=== PATIENT | male | born 1960 | race Caucasian/White ===

== ENCOUNTER 2024-04-30 18:17 | Inpatient (IN) | payer MEDICAID, SELFPAY ==
[2024-04-30 18:30] VITALS: BP 165/87; PULSE 108; RESP 24; TEMP 36.4; O2SAT 98
--- NOTE | 2024-04-30 18:37 | XR_ITS ---
Examination: CT abdomen with intravenous contrast CT pelvis with intravenous contrast 2-D coronal reconstructions 2-D sagittal reconstructions Date and time of exam:25 2152 hrs. Indications: Nausea vomiting bodyaches beginning 2 days ago. CTDI: vol (mGy) 10.9 DLP: (mGycm) 689 Technique: Multiple axial sections of the abdomen and pelvis have been obtained. 64 slice high-resolution scanner used. 3 mm axial sections have been obtained, post intravenous injection 60 cc [id number] 2-D sagittal, coronal reconstructions obtained. Low dose protocols were performed. One or more of the following dose reduction techniques were used; automated exposure control, adjustment of the mA and/or KV according to patient size, use of iterative reconstruction technique. Findings: No liver or splenic lesions Distended gallbladder No pancreatic or adrenal mass Moderate bilateral renal parenchymal scar formation, perinephric stranding Aorta normal size Normal appendix No bowel obstruction No diverticulitis No bladder mass or bladder calculi Mild prostatomegaly Moderate osteopenia, grade 1 anterolisthesis L4 on L5 Impression: Distended gallbladder, please see the gallbladder sonogram report today Moderate bilateral renal parenchymal scar formation with perinephric stranding, consider urinary tract infection
--- NOTE | 2024-04-30 18:39 | PD.EDNV ---
Nausea/Vomit./Diarrhea-RME/HPI General Chief complaint: Nausea/Vomiting/Diarrhea Stated complaint: N/V/D, BODY ACHES, SHAKY X 2 DAYS; CAN'T EAT Time Seen by Provider: 04/30/24 18:37 Arrival date/time: 04/30/24 18:17 63M with history of HTN and DM and occasional marijuana use presents ot ED with several days of N/V, body aches, non-bloody diarrhea, and ab pain/cramping. Limitations: no limitations Related Data Home Medications ?Medication ?Instructions ?Recorded ?Confirmed hydrocodone 5 mg-acetaminophen 325 1 tab PO QID PRN Pain 12/03/17 05/01/24 mg tablet (Welda) metformin 1,000 mg tablet 1,000 mg PO BID 12/03/17 05/01/24 gabapentin 600 mg tablet 600 mg PO HS 05/01/24 05/01/24 liraglutide 0.6 mg/0.1 mL (18 mg/3 1.5 mg subcut QDAY 05/01/24 05/01/24 mL) subcutaneous pen injector (Tufin 3-Skyler) Previous Rx's ?Medication ?Instructions ?Recorded bacitracin 500 unit/gram topical 1 applicatio topical QID #30 grams 12/03/17 ointment sulfamethoxazole 800 1 tab PO BID #20 tabs 12/03/17 mg-trimethoprim 160 mg tablet (Bactrim DS) amlodipine 10 mg tablet 10 mg PO QDAY #30 tabs 05/03/18 Allergies Allergy/AdvReac Type Severity Reaction Status Date / Time walnut Allergy Unknown SOB Verified 04/30/24 18:20 Review of Systems Review of Systems Systems Reviewed: All systems reviewed, normal except as documented Constitutional Constitutional: Reports system reviewed and no additional complaints, except as documented, Denies fever(s) and Denies headache(s) ENT Ears, Nose, Mouth, and Throat: Denies disequilibrium and Denies headache(s) Cardiovascular Cardiovascular: Reports system reviewed and no additional complaints, except as documented, Denies chest pain and Denies dyspnea Respiratory Respiratory: Reports system reviewed and no additional complaints, except as documented, Denies cough and Denies dyspnea Gastrointestinal Gastrointestinal: Reports system reviewed and no additional complaints, except as documented, Reports as per HPI, Reports abdominal pain, Reports diarrhea, Reports nausea and Reports vomiting Neurologic Neurologic: Reports system reviewed and no additional complaints, except as documented, Denies confusion, Denies disequilibrium and Denies headache(s) Psychiatric Psychiatric: Denies confusion Past Medical History Past Medical History CARDIAC: Positive Hypertension; Negative Congestive Heart Failure RESPIRATORY: Negative Chronic Obstructive Pulmonary Disease (COPD) GENITOURINARY: Negative Renal Disease ENDOCRINE: Positive Diabetes Mellitus Type 2; Negative Diabetes Mellitus Type 1 Social History SMOKING STATUS: Never smoker SUBSTANCE USE: does not use ED Exam General Limitations: Present no limitations General appearance: Present alert and in no apparent distress Head Head exam: Present atraumatic Eye Eye exam: Present normal appearance, PERRL and EOMI ENT ENT exam: Present normal exam, normal oropharynx and mucous membranes moist Neck Neck exam: Present normal inspection, full ROM and trachea midline Chest Chest inspection: Present normal inspection and symmetric chest wall rise Respiratory Respiratory exam: Present normal lung sounds bilaterally Cardiovascular Cardiovascular exam: Present regular rate, normal rhythm and normal heart sounds Abdominal Exam Abdominal exam: Present soft, tenderness and normal bowel sounds Abdominal tenderness: Present diffuse and mild Extremities Exam Extremities exam: Present normal inspection and full ROM Back Exam Back exam: Present normal inspection and full ROM Neurological Exam Neurological exam: Present alert, oriented X3 and CN II-XII intact Psychiatric Psychiatric exam: Present normal affect and normal mood Skin Skin exam: Present warm, dry, intact and normal color Course Quality Measures none Orders Category Date Time Status Bedside Blood Glucose ACHS Care 05/01/24 09:00 Active Bedside COVID-19 Antigen Test NOW Care 05/01/24 13:[address] Screening NOW Care 04/30/24 18:38 Active Consent [Obtain Written Consent For:] .NOW Care 05/01/24 13:40 Completed Insert IV NOW Care 04/30/24 18:37 Active MRI Screening NOW Care 04/30/24 22:[address] abdomen pelvis w con Stat Exams 04/30/24 18:37 Completed MR MRCP Stat Exams 05/01/24 Completed US gall bladder Stat Exams 04/30/24 20:23 Completed Alcohol, Blood Medical Stat Lab 04/30/24 19:04 Completed Beta Hydroxybutyrate Stat Lab 04/30/24 19:04 Completed Beta Hydroxybutyrate Stat Lab 05/01/24 09:05 Completed Blood Culture (Lab) Stat Lab 04/30/24 19:57 Received CBC Stat Lab 04/30/24 19:04 Completed CBC Stat Lab 05/01/24 07:54 Completed CMP [Comprehensive Metabolic Panel] Stat Lab 04/30/24 19:04 Completed CMP [Comprehensive Metabolic Panel] Stat Lab 05/01/24 07:54 Completed Drug Screen,Urine Stat Lab 04/30/24 18:37 Completed Lactate (Lactic Acid) Stat Lab 04/30/24 19:04 Completed Lactic Acid [Lactate (Lactic Acid)] Stat Lab 05/01/24 07:54 Completed Lactic Acid, 3 HR Stat Lab 04/30/24 22:24 Completed Lipase Stat Lab 04/30/24 19:04 Completed Magnesium Stat Lab 04/30/24 19:04 Completed Phosphorous Stat Lab 04/30/24 19:04 Completed Procalcitonin Stat Lab 04/30/24 19:04 Completed Renal Function Panel Stat Lab 05/01/24 03:05 Completed Urinalysis, C/S if Indicated Stat Lab 04/30/24 19:47 Completed VBG [Venous Blood Gas] Stat Lab 04/30/24 19:04 Completed Acetaminophen Tab [Tylenol Tab] Med 05/01/24 09:20 Discontinued 650 mg PO X1 ONE DiphenhydrAMINE INJ [Benadryl Inj] Med 04/30/24 22:15 Discontinued 12.5 mg IVP X1 ONE Insulin Regular Med 04/30/24 23:39 Discontinued 10 unit IV X1 ONE Metoclopramide Inj [Reglan Inj] Med 04/30/24 22:15 Discontinued 10 mg IVP X1 ONE Metoclopramide Inj [Reglan Inj] Med 05/01/24 06:57 Discontinued 10 mg IVP X1 ONE Morphine Inj Med 04/30/24 21:10 Discontinued 5 mg IVP X1 ONE Ondansetron Inj [Zofran Inj] Med 04/30/24 18:37 Discontinued 4 mg IV X1 ONE Piper/Tazo 3.375 gm Premix [Zosyn] Med 04/30/24 21:30 Discontinued 3.375 gm in 50 ml IV X1 Piper/Tazo 3.375 gm Premix [Zosyn] Med 05/01/24 13:41 Discontinued 3.375 gm in 50 ml IV X1 Ringers Lactated 1000 ml [Lactated Ringers] 1,000 ml Med 05/01/24 03:57 Discontinued IV 250 mls/hr Ringers Lactated 1000 ml [Lactated Ringers] 1,000 ml Med 04/30/24 23:25 Discontinued IV 500 mls/hr Ringers Lactated 1000 ml [Lactated Ringers] 1,000 ml Med 04/30/24 18:37 Discontinued IV 999 mls/hr Sodium Chloride 0.9% 1000 ml [Ns] 1,000 ml Med 04/30/24 22:19 Discontinued IV 500 mls/hr hydrALAZINE INJ [Apresoline Inj] Med 05/01/24 00:01 Discontinued 20 mg IV X1 ONE Vital Signs Vital signs: Vital Signs Temperature 97.6 F 04/30/24 18:30 Pulse Rate 108 H 04/30/24 18:30 Respiratory Rate 24 H 04/30/24 18:30 Blood Pressure 165/87 H 04/30/24 18:30 Pulse Oximetry (%) 98 04/30/24 18:30 O2 at 98% on RA and WNLs Nausea/Vomiting/Diarrhea MDM Narrative MDM Narrative:: 63M with history of HTN and DM and occasional marijuana use presents ot ED with several days of N/V, body aches, non-bloody diarrhea, and ab pain/cramping. Physical exam reveals mild generalized ab tenderness. Patient is afebrile, calm, and alert. CT reveals distended gallbladder. US shows cholelithiasis, but no cholecystitis. CBD normal. Lactate 4.9. Procal 3.0. Sepsis alert was called. IVF, ABX, were given. CMP elevated bili and LFTs. Repeat lactate 3.0. Upon reassessment, patient feeling better after meds. Glucose, beta hydroxy, and anion gap elevated. But blood pH normal. Possible early DKA vs DKA with compensatory/mixed alkalosis from N/V likely from biliary disease. Patient will need MRCP in AM. Care signed out to colleague TON Jacinto. Dispo including transfer vs admission/surgical consultation. Patient ended up being admitted for surgery for cholecystitis confirmed with MRCP. Patient data External records reviewed:: [facility] previous records Clinical information provided by:: patient Social determinants that could affect healthcare access:: substance use Patient has the following chronic illnesses:: DM and marijuana use How is presenting disease/condition affected by chronic disease/condition?: exacerbated by Evaluation data The following diagnostics were reviewed and interpreted by me:: lab results and radiology exam(s) Lab and/or radiology exams considered but not ordered:: ordered Interpretation Summary: above Medications / Prescriptions Medications / Prescriptions considered but not ordered:: ordered Medication administrations:: Medication Administration History Acetaminophen (Acetaminophen 325 Mg Tablet) 650 mg PO Q6H PRN PRN Reason: Fever >101.5 Stop: 05/31/24 14:05 Acetaminophen (Acetaminophen 325 Mg Tablet) 650 mg PO Q6H PRN PRN Reason: PAIN SCALE 1-3 (mild Stop: 05/31/24 14:05 Last Admin: 05/01/24 16:37 Dose: 650 mg Documented By: JARON Dextrose (Dextrose 50%-Water Inj 50 Ml Syringe) 25 ml IV Q15MIN PRN PRN Reason: BG 50-70 responsive npo pt Stop: 05/31/24 14:11 Dextrose (Dextrose 50%-Water Inj 50 Ml Syringe) 50 ml IV Q15MIN PRN PRN Reason: BG <50 OR BG <70 & pt unresponsive Stop: 05/31/24 14:11 Docusate Sodium (Docusate Sod 100 Mg Capsule) 100 mg PO QDAY [facility]; Protocol Stop: 06/01/24 08:59 Glucagon (Glucagon Inj 1 Mg Vial) 1 mg IM Q15MIN PRN PRN Reason: BG <70, and no IV access Piperacillin/Tazobactam/Dextrose (Zosyn) 3.375 gm in 50 mls @ 12.5 mls/hr IV Q8HR [facility] Stop: 05/08/24 21:59 Lactated Ringer's (Lactated Ringers) 1,000 mls @ 150 mls/hr IV .Q6H40M [facility] Stop: 05/31/24 14:35 Last Admin: 05/01/24 14:47 Dose: 150 mls/hr Documented By: FABIAN Insulin Human Lispro (Insulin Lispro (Admelog) 1 Unit/0.01 Ml Unit) 0 unit SC AC [facility]; Protocol Stop: 05/31/24 16:59 Last Admin: 05/01/24 16:51 Dose: 3 unit Documented By: JARON Co-signed By: DEANNA Ondansetron HCl (Ondansetron Inj 2 Mg/Ml Inj 2 Ml) 4 mg IV Q6H PRN; Protocol PRN Reason: NAUSEA OR VOMITING Stop: 05/31/24 14:05 Pantoprazole Sodium (Pantoprazole Inj 40 Mg Vial) 40 mg IVP QDAY [facility] Stop: 05/31/24 14:14 Last Admin: 05/01/24 14:47 Dose: 40 mg Documented By: FABIAN Sennosides (Senna Tablet) 1 tab PO QDAY [facility]; Protocol Stop: 06/01/24 08:59 Discontinued Medications Acetaminophen (Acetaminophen 325 Mg Tablet) 650 mg PO X1 ONE Stop: 05/01/24 09:21 Last Admin: 05/01/24 10:20 Dose: 650 mg Documented By: LORI Diphenhydramine HCl (Diphenhydramine Inj 50 Mg/Ml Vial) 12.5 mg IVP X1 ONE Stop: 04/30/24 22:16 Last Admin: 04/30/24 23:37 Dose: 12.5 mg Documented By: MIGUEL ANGEL Hydralazine HCl (Hydralazine Inj 20 Mg/Ml Vial) 20 mg IV X1 ONE Stop: 05/01/24 00:02 Last Admin: 05/01/24 00:59 Dose: 20 mg Documented By: MIGUEL ANGEL Lactated Ringer's (Lactated Ringers) 1,000 mls @ 999 mls/hr IV .Q1H1M ONE Stop: 04/30/24 19:37 Last Infusion: 04/30/24 22:42 Dose: Infused Documented By: Admin: 04/30/24 20:19 Dose: 999 mls/hr Documented By: JAYDEN Piperacillin/Tazobactam/Dextrose (Zosyn) 3.375 gm in 50 mls @ 100 mls/hr IV X1 ONE Stop: 04/30/24 21:59 Last Infusion: 04/30/24 22:41 Dose: Infused Documented By: Admin: 04/30/24 21:43 Dose: 100 mls/hr Documented By: JAYDEN Sodium Chloride (Ns) 1,000 mls @ 500 mls/hr IV .Q2H ONE Stop: 05/01/24 00:18 Last Admin: 04/30/24 23:38 Dose: Not Given Documented By: MIGUEL ANGEL Non-Admin Reason: Cancelled by Provider Lactated Ringer's (Lactated Ringers) 1,000 mls @ 500 mls/hr IV .Q2H ONE Stop: 05/01/24 01:24 Last Infusion: 05/01/24 02:33 Dose: Infused Documented By: Admin: 04/30/24 23:48 Dose: 500 mls/hr Documented By: MIGUEL ANGEL Lactated Ringer's (Lactated Ringers) 1,000 mls @ 250 mls/hr IV .Q4H ONE Stop: 05/01/24 07:56 Last Infusion: 05/01/24 09:04 Dose: Infused Documented By: Admin: 05/01/24 04:49 Dose: 250 mls/hr Documented By: TRAVIS Piperacillin/Tazobactam/Dextrose (Zosyn) 3.375 gm in 50 mls @ 100 mls/hr IV X1 ONE Stop: 05/01/24 14:10 Last Infusion: 05/01/24 14:39 Dose: Infused Documented By: Admin: 05/01/24 14:02 Dose: 100 mls/hr Documented By: RODRIGUE Lactated Ringer's (Lactated Ringers) 1,000 mls @ 75 mls/hr IV .[id number] [facility] Stop: 05/31/24 14:14 Insulin Human Regular (Insulin Hum Regular 1 Unit/0.01 Ml (Per Unit)) 10 unit IV X1 ONE Stop: 04/30/24 23:40 Last Admin: 05/01/24 00:11 Dose: 10 unit Documented By: MIGUEL ANGEL Co-signed By: JAYDEN Comments: Metoclopramide HCl (Metoclopramide Inj 5 Mg/Ml Vial 2 Ml) 10 mg IVP X1 ONE; Protocol Stop: 04/30/24 22:16 Last Admin: 04/30/24 23:36 Dose: 10 mg Documented By: MIGUEL ANGEL Metoclopramide HCl (Metoclopramide Inj 5 Mg/Ml Vial 2 Ml) 10 mg IVP X1 ONE; Protocol Stop: 05/01/24 06:58 Last Admin: 05/01/24 07:38 Dose: 10 mg Documented By: LORI Morphine Sulfate (Morphine Sulf Inj 10 Mg/Ml Vial) 5 mg IVP X1 ONE Stop: 04/30/24 21:11 Last Admin: 04/30/24 21:43 Dose: 5 mg Documented By: JAYDEN Ondansetron HCl (Ondansetron Inj 2 Mg/Ml Inj 2 Ml) 4 mg IV X1 ONE; Protocol Stop: 04/30/24 18:38 Last Admin: 04/30/24 20:18 Dose: 4 mg Documented By: JAYDEN above Consultations Consultation(s) initiated? (list below): No Diagnosis Nausea Differential Diagnosis: traveler's diarrhea, food poisoning, gastroenteritis, clostridium difficile infection, drug-induced nausea and vomiting, dehydration and other (DKA, SBO, biliary disease) Most likely diagnosis given after review of the tests above:: cholecystitis Admission Indicated Admission indicated?: indicated Admission Request Was there a request for admission?: Yes Admission Attestation Admission request attestation: Discussed case with [] from Hospitalist service regarding admission. Discussed patients ED course, exam findings, labs, and radiology results. The Hospitalist [agrees,declines] to accept the patient for admission. Disposition Plan Disposition Plan: Admit Discharge Plan Plan Patient Disposition: Admit Acute Care w/in Hospital Problem List Clinical Impression: Acute cholecystitis
[2024-04-30 19:35] LABS: Basophils % (Auto) 0 % (0-2.5); Eosinophils % (Auto) 0 % (0-10); Hematocrit 45.8 % (41.0-53.0); Hemoglobin 15.9 g/dL (13.5-16.0); Immature Granulocytes % (Auto) 1 % (0-0); Immature Granulocytes Auto 0.15 Thou/mm3 (0.00-0.00); Lymphocytes # (Auto) 0.9 Thou/mm3 (1.0-4.8); Lymphocytes % (Auto) 5 % (10-50); Mean Corpuscular HGB Conc 34.7 g/dl (31.0-37.0); Mean Corpuscular Hemoglobin 29.3 pg (25.0-35.0); Mean Corpuscular Volume 84 fL (80-100); Monocytes # (Auto) 1.2 Thou/mm3 (0.0-0.8); Monocytes % (Auto) 7 % (0-12); Neutrophils # (Auto) 16.6 Thou/mm3 (1.8-7.7); Neutrophils % (Auto) 88 % (37-80); Nucleated Red Blood Cell % 0 /100 WBC (0); Platelet Count 273 Thou/mm3 (140-440); RDW Standard Deviation 40.5 fL (35.1-43.9); Red Blood Count 5.43 Miln/mm3 (4.50-5.90); White Blood Count 18.9 Thou/mm3 (3.8-10.6)
[2024-04-30 19:36] LABS: Lactate (Lactic Acid) 4.9 mMol/L (0.4-2.0)
[2024-04-30 19:45] LABS: Beta Hydroxybutyrate 5.2 mmol/L (<0.6)
[2024-04-30 19:59] VITALS: BP 176/92; PULSE 100; RESP 22; TEMP 36.6; O2SAT 99
[2024-04-30 20:01] LABS: Alanine Aminotransferase 231 U/L (10-49); Albumin, Serum 4.5 gm/dL (3.4-4.8); Albumin/Globulin Ratio 1.3 (1.2-2.2); Alkaline Phosphatase 268 U/L (46-116); Anion Gap 24 (7-16); Aspartate Amino Transferase 207 U/L (0-34); BUN/Creatinine Ratio 17 Ratio (12-20); Bilirubin,Total 6.5 mg/dL (0.3-1.2); Blood Urea Nitrogen 20 mg/dL (9-23); Calcium 9.8 mg/dL (8.3-10.6); Calcium (Corrected) 9.8 mg/dL (8.5-10.1); Carbon Dioxide 17.4 mMol/L (20.0-31.0); Chloride 92 mMol/L (98-107); Creatinine (Component) 1.2 mg/dL (0.6-1.3); Globulin 3.4 gm/dL (2.3-3.5); Glucose 359 mg/dL (74-106); Lipase 28 U/L (12-53); Osmolality,Calculated 282 (275-295); Sodium 133 mMol/L (136-145); Total Protein 7.9 gm/dL (5.7-8.2); eGFR > 60 See Note
[2024-04-30] MEDS: ONDANSETRON INJ 2 MG/ML INJ 2 ML 4 MG IV (20:18)
[2024-04-30] MEDS: RINGERS LACTATED 1000 ML 1,000 ML 999 ML IV (20:19)
--- NOTE | 2024-04-30 20:23 | XR_ITS ---
Examination: Abdomen sonogram, Limited Date and time of exam: April 30, 2024 2032 hrs. Indications: Abdominal pain and vomiting beginning 2 days ago Technique: Real-time aguilar scale transabdominal sonographic images of the upper abdomen obtained. Findings: Contracted gallbladder with gallstones Gallbladder wall 0.3 cm Common bile duct 0.4 CM Pancreatic head 3.2 cm Liver 14 cm fatty infiltration Normal hepatopedal portal venous flow Patent IVC Impression: Cholelithiasis, negative for cholecystitis
[2024-04-30 20:46] LABS: Reflex Lactate? Y
[2024-04-30 20:55] LABS: Base Excess, Venous -2 (-3-3); O2 Saturation, Venous 79 % (96-97); PCO2, Venous 23 mmHg (36-56); PO2, Venous 35 mmHg (15-58); pH, Venous 7.53 (7.33-7.66)
[2024-04-30 21:03] LABS: Bacteria,Urine Rare; Bilirubin,Urine 1+ (Negative); Blood,Urine 2+ (Negative); Clarity,Urine Clear (Clear/Hazy); Collection Type, Urine Clean Catch; Color,Urine Yellow (Lt Yel-Yel); Culture Indicated,Urine Not Indicated; Glucose, Urine 4+ (Negative); Ketones,Urine 3+ (Negative); Leukocyte Esterase,Urine Negative (Negative); Nitrite,Urine Negative (Negative); Protein,Urine 1+ (Neg - Trace); RBC,Urine 6 /hpf (0-3); Specific Gravity,Urine 1.037 (1.001-1.035); Squamous Epithelial Cell,Urine 0 /hpf (0-5); Urobilinogen,Urine Negative mg/dL (0.0-1.0); WBC,Urine 1 /hpf (0-5)
[2024-04-30 21:04] LABS: Alcohol, Blood Medical < 3.0 mg/dL (0-10.0); Magnesium 1.9 mg/dL (1.6-2.6); Phosphorous 2.1 mg/dL (2.4-5.1)
[2024-04-30 21:23] LABS: Amphetamine/Methamp Scrn,U Negative (Negative); Barbiturate Screen,Urine Negative (Negative); Benzodiazepines Screen,Urine Negative (Negative); Benzoylecgonine Screen, Ur Negative (Negative); Fentanyl Screen,Urine Negative (Negative); Opiate Screen,Urine Positive (Negative); THC Screen,Urine Positive (Negative)
[2024-04-30] MEDS: PIPER/TAZO 3.375 GM PREMIX 3.375 GM/50 ML BAG IV (21:43)
[2024-04-30] MEDS: MORPHINE SULF INJ 10 MG/ML VIAL 5 MG IVP (21:43)
--- NOTE | 2024-04-30 23:30 | PC.NURSE ---
CHARGE NURSE ESTELITA INFORMED THAT PT IS GETTING MORE AGITATED, CONTINUES GETTING OUT OF BED, PULLING ON ALL MONITORING DEVICES. PT REMOVED CONDOM CATHETER AND THREW IT ON THE FLOOR. AVASURE ORDER PLACED AT [phone] FAX OVER TO HOUSE SUP. STILL AWAITING AVASURE AT THIS TIME. CRISTÓBAL RAUSCH PLACED O 1:1 SITTER AT THIS TIME.
[2024-04-30] MEDS: METOCLOPRAMIDE INJ 5 MG/ML VIAL 2 ML 10 MG IVP (23:36)
[2024-04-30] MEDS: DiphenhydrAMINE INJ 50 MG/ML VIAL 12.5 MG IVP (23:37)
[2024-04-30 23:41] VITALS: BP 188/102; BP 197/111; PULSE 101; RESP 19; TEMP 36.7; O2SAT 97
[2024-04-30] MEDS: RINGERS LACTATED 1000 ML 1,000 ML 500 ML IV (23:48)
[2024-05-01] VITALS (9 sets, daily range): BP systolic 134–165; BP diastolic 69–99; PULSE 90–103; RESP 16–19; TEMP 36.3–37.4; O2SAT 94–98; BMI 30.9
--- NOTE | 2024-05-01 | XR_ITS ---
EXAMINATION: MR MRCP ORDERING PROVIDER: John Crabtree PA-C HISTORY: Abdominal pain, cramping, nausea/vomiting, bodyaches x2 days. Elevated biliary labs, sepsis, concern for common bile duct stone. TECHNIQUE: Multiplanar multisequence magnetic resonance images were obtained of the abdomen without contrast utilizing institutional magnetic resonance cholangiopancreatography protocol. This includes 2-D, 3-D, and maximum intensity projection reformats generated on a separate workstation and submitted for interpretation. COMPARISON: 04/30/2024, CT abdomen pelvis and right upper quadrant ultrasound. FINDINGS: Hydropic gallbladder measuring up to 13.2 cm in length. No wall thickening. Pericholecystic fluid is present. Mild graying of normal internal T2 signal in the gallbladder likely represents diffuse sludge without intraluminal filling defects. Cystic duct is not well evaluated. Common bile duct measures 6 mm. There is no intraluminal filling defect. There is no intrahepatic biliary dilation. Hepatic duct measures 3 mm. There is significant atrophy of the pancreas. There is a 1.5 cm widened T2 hyperintensity adjacent to the first portion of the duodenum and pancreatic head, with altered appearance is on different sequences, favored to be related to duodenal lumen. There is diffuse decreased T2 signal of the liver. There is a 7 mm peripheral T2 hyperintensity in inferior aspect of the spleen, which may represent a cyst. Adrenal glands unremarkable. Moderate bilateral perinephric fat stranding without pelvic caliectasis. Colonic diverticulosis without surrounding inflammatory changes. There are signal unremarkable. Vessels not abnormally dilated. 2 left renal arteries. IMPRESSION: 1. Acute cholecystitis with gallbladder sludge. 2. No choledocholithiasis identified. 3. Hepatic steatosis. 4. Moderate bilateral perinephric fat stranding, probably due to age and/or chronic renal dysfunction. However, recommend correlation with urinary labs to help exclude underlying urinary tract infection.
[2024-05-01] MEDS: INSULIN HUM REGULAR 1 UNIT/0.01 ML (PER UNIT) 10 UNIT IV (00:11)
[2024-05-01] MEDS: hydrALAZINE INJ 20 MG/ML VIAL IV (00:59)
[2024-05-01 03:40] LABS: Albumin, Serum 4.2 gm/dL (3.4-4.8); Anion Gap 18 (7-16); BUN/Creatinine Ratio 20 Ratio (12-20); Blood Urea Nitrogen 22 mg/dL (9-23); Calcium 9.3 mg/dL (8.3-10.6); Calcium (Corrected) 9.3 mg/dL (8.5-10.1); Carbon Dioxide 20.9 mMol/L (20.0-31.0); Chloride 96 mMol/L (98-107); Creatinine (Component) 1.1 mg/dL (0.6-1.3); Glucose 281 mg/dL (74-106); Osmolality,Calculated 283 (275-295); Phosphorous 2.8 mg/dL (2.4-5.1); Potassium 3.8 mMol/L (3.4-5.1); Sodium 135 mMol/L (136-145); eGFR > 60 See Note
[2024-05-01] MEDS: RINGERS LACTATED 1000 ML 1,000 ML 250 ML IV (04:49)
--- NOTE | 2024-05-01 06:58 | PC.NURSE ---
PROVIDER CHELA ZARCO PT IS VOMIITING AT BEDSIDE. NEW ORDERS RECEIVED.
[2024-05-01] MEDS: METOCLOPRAMIDE INJ 5 MG/ML VIAL 2 ML 10 MG IVP (07:38)
[2024-05-01 08:08] LABS: Lactate (Lactic Acid) 1.9 mMol/L (0.4-2.0)
[2024-05-01 08:29] LABS: Alanine Aminotransferase 178 U/L (10-49); Albumin, Serum 4.2 gm/dL (3.4-4.8); Albumin/Globulin Ratio 1.4 (1.2-2.2); Alkaline Phosphatase 254 U/L (46-116); Anion Gap 20 (7-16); Aspartate Amino Transferase 136 U/L (0-34); BUN/Creatinine Ratio 21 Ratio (12-20); Bilirubin,Total 4.4 mg/dL (0.3-1.2); Blood Urea Nitrogen 21 mg/dL (9-23); Calcium 9.3 mg/dL (8.3-10.6); Calcium (Corrected) 9.3 mg/dL (8.5-10.1); Carbon Dioxide 18.8 mMol/L (20.0-31.0); Chloride 95 mMol/L (98-107); Globulin 3.1 gm/dL (2.3-3.5); Glucose 262 mg/dL (74-106); Osmolality,Calculated 280 (275-295); Potassium 3.8 mMol/L (3.4-5.1); Sodium 134 mMol/L (136-145); Total Protein 7.3 gm/dL (5.7-8.2); eGFR > 60 See Note
[2024-05-01 08:31] LABS: Basophils % (Auto) 0 % (0-2.5); Eosinophils % (Auto) 0 % (0-10); Hematocrit 42.9 % (41.0-53.0); Hemoglobin 15.3 g/dL (13.5-16.0); Immature Granulocytes % (Auto) 1 % (0-0); Immature Granulocytes Auto 0.13 Thou/mm3 (0.00-0.00); Lymphocytes % (Auto) 5 % (10-50); Mean Corpuscular HGB Conc 35.7 g/dl (31.0-37.0); Mean Corpuscular Hemoglobin 29.7 pg (25.0-35.0); Mean Corpuscular Volume 83 fL (80-100); Monocytes # (Auto) 1.6 Thou/mm3 (0.0-0.8); Monocytes % (Auto) 7 % (0-12); Neutrophils # (Auto) 18.5 Thou/mm3 (1.8-7.7); Neutrophils % (Auto) 87 % (37-80); Nucleated Red Blood Cell % 0 /100 WBC (0); Platelet Count 283 Thou/mm3 (140-440); RDW Standard Deviation 41.2 fL (35.1-43.9); Red Blood Count 5.15 Miln/mm3 (4.50-5.90); White Blood Count 21.3 Thou/mm3 (3.8-10.6)
[2024-05-01 09:15] LABS: Beta Hydroxybutyrate 5.4 mmol/L (<0.6)
[2024-05-01] MEDS: ACETAMINOPHEN 325 MG TABLET 650 MG PO ×2 (10:20→16:37)
--- NOTE | 2024-05-01 11:36 | PC.NURSE ---
PATIENT REPORTS THAT PAIN IS TOLERABLE AT THIS TIME AND DOES NOT NEED PAIN MEDICATION AT THIS TIME.
--- NOTE | 2024-05-01 13:34 | EDNOTE_ITS ---
<Statement entered by Bailee Shaw MD - 05/12/24 08:21> As co-signing physician, I was present and available for consult prn. I concur with the plan and care as documented by the midlevel provider. ED General RME/HPI General Chief complaint: Nausea/Vomiting/Diarrhea Stated complaint: N/V/D, BODY ACHES, SHAKY X 2 DAYS; CAN'T EAT Time Seen by Provider: 04/30/24 18:37 Arrival date/time: 04/30/24 18:17 CC: Nausea vomiting HPI patient assumed care at 0 600 from [facility], for nausea vomiting at the time patient had DKA ruled out, the patient was sleeping soundly, and had no complaints. Patient was waiting for MRCP scheduled for this morning.. Limitations: no limitations Related Data Home Medications ?Medication ?Instructions ?Recorded ?Confirmed hydrocodone 5 mg-acetaminophen 325 1 tab PO QID PRN Pa in 12/03/17 05/01/24 mg tablet (Bison) metformin 1,000 mg tablet 1,000 mg PO BID 12/03/17 gabapentin 600 mg tablet 600 mg PO HS 05/01/24 liraglutide 0.6 mg/0.1 mL (18 mg/3 1.5 mg subcut QDAY 05/01/24 05/01/24 mL) subcutaneous pen injector (Victoza 3-Skyler) Previous Rx's ?Medication ?Instructions ?Recorded bacitracin 500 unit/gram topical 1 applicatio topical QID #30 grams 12/03/17 ointment sulfamethoxazole 800 1 tab PO BID #20 tabs mg-trimethoprim 160 mg tablet (Bactrim DS) amlodipine 10 mg tablet 10 mg PO QDAY #30 tabs 05/03 Allergies Allergy/AdvReac Type Severity Reaction Status Date / Time walnut Allergy Unknown SOB Verified 04/30/24 18:20 Review of Systems Review of Systems Narrative Review of Systems: GEN: No fever, no chills, no weight loss EYES: No discharge, no visual changes, no pain HEENT: No ear pain, no congestion, no sore throat PULM: No shortness of breath, no cough, no congestion CV: No chest pain, no dyspnea on exertion, no palpitations GI: + nausea, + vomiting, no diarrhea, no pain, no constipation : No frequency, no urgency, no dysuria MUSC/SKEL: No joint pain, no back pain SKIN: No rash PSYCH: No hallucinations, no depression HEME/LYMPH: No easy bleeding or bruising tendencies NEURO: No weakness, no headache] Past Medical History Past Medical History CARDIAC: Positive Hypertension; Negative Cardiac Disorders or Congestive Heart Failure RESPIRATORY: Positive Asthma; Negative Respiratory Disorders or Chronic Obstructive Pulmonary Disease (COPD) GENITOURINARY: Negative Renal Disease ENDOCRINE: Positive Diabetes Mellitus Type 2; Negative Diabetes Mellitus Type 1 HEMATOLOGIC: Negative Sickle Cell Disease Social History SMOKING STATUS: Never smoker SUBSTANCE USE: does not use ED Exam Narrative Physical exam: [At 0610 General: Sleeping not in any acute distress Head normocephalic HEENT: Within acceptable limits Neck is supple nontender Chest equal chest rise nontender to palpation Respiratory: Clear to auscultation no wheezes crackles or rubs CV: Rate rhythm is regular no murmurs rubs or clicks Abdomen is distended secondary to body habitus soft nontender no masses positive bowel sounds all 4 quadrants Back: No CVA tenderness no spinous process tenderness from cervical spine thoracic and lumbar spine Skin: Intact no petechiae rash induration ulceration or crepitus Extremities: Moving all extremity against resistance cap refill less than 2 seconds neurosensory intact Neuro: Awake alert oriented x3 Glascow coma 15 no focal deficits] General Limitations: Present no limitations General appearance: Present alert and in no apparent distress Course Quality Measures none Orders Category Date Time Status Bedside Blood Glucose ACHS Care 05/01/24 09:00 Active Bedside COVID-19 Antigen Test NOW Care 05/01/24 13:[address] Screening NOW Care 04/30/24 18:38 Active Consent [Obtain Written Consent For:] .NOW Care 05/01/24 13:40 Completed Insert IV NOW Care 04/30/24 18:37 Active MRI Screening NOW Care 04/30/24 22:[address] abdomen pelvis w con Stat Exams 04/30/24 18:37 Completed MR MRCP Stat Exams 05/01/24 Completed US gall bladder Stat Exams 04/30/24 20:23 Completed Alcohol, Blood Medical Stat Lab 04/30/24 19:04 Completed Beta Hydroxybutyrate Stat Lab 04/30/24 19:04 Completed Beta Hydroxybutyrate Stat Lab 05/01/24 09:05 Completed Blood Culture (Lab) Stat Lab 04/30/24 19:57 Results CBC Stat Lab 04/30/24 19:04 Completed CBC Stat Lab 05/01/24 07:54 Completed CMP [Comprehensive Metabolic Panel] Stat Lab 04/30/24 19:04 Completed CMP [Comprehensive Metabolic Panel] Stat Lab 05/01/24 07:54 Completed Drug Screen,Urine Stat Lab 04/30/24 18:37 Completed Lactate (Lactic Acid) Stat Lab 04/30/24 19:04 Completed Lactic Acid [Lactate (Lactic Acid)] Stat Lab 05/01/24 07:54 Completed Lactic Acid, 3 HR Stat Lab 04/30/24 22:24 Completed Lipase Stat Lab 04/30/24 19:04 Completed Magnesium Stat Lab 04/30/24 19:04 Completed Phosphorous Stat Lab 04/30/24 19:04 Completed Procalcitonin Stat Lab 04/30/24 19:04 Completed Renal Function Panel Stat Lab 05/01/24 03:05 Completed Urinalysis, C/S if Indicated Stat Lab 04/30/24 19:47 Completed VBG [Venous Blood Gas] Stat Lab 04/30/24 19:04 Completed Acetaminophen Tab [Tylenol Tab] Med 05/01/24 09:20 Discontinued 650 mg PO X1 ONE DiphenhydrAMINE INJ [Benadryl Inj] Med 04/30/24 22:15 Discontinued 12.5 mg IVP X1 ONE Insulin Regular Med 04/30/24 23:39 Discontinued 10 unit IV X1 ONE Metoclopramide Inj [Reglan Inj] Med 04/30/24 22:15 Discontinued 10 mg IVP X1 ONE Metoclopramide Inj [Reglan Inj] Med 05/01/24 06:57 Discontinued 10 mg IVP X1 ONE Morphine Inj Med 04/30/24 21:10 Discontinued 5 mg IVP X1 ONE Ondansetron Inj [Zofran Inj] Med 04/30/24 18:37 Discontinued 4 mg IV X1 ONE Piper/Tazo 3.375 gm Premix [Zosyn] Med 04/30/24 21:30 Discontinued 3.375 gm in 50 ml IV X1 Piper/Tazo 3.375 gm Premix [Zosyn] Med 05/01/24 13:41 Discontinued 3.375 gm in 50 ml IV X1 Ringers Lactated 1000 ml [Lactated Ringers] 1,000 ml Med 05/01/24 03:57 Discontinued IV 250 mls/hr Ringers Lactated 1000 ml [Lactated Ringers] 1,000 ml Med 04/30/24 23:25 Discontinued IV 500 mls/hr Ringers Lactated 1000 ml [Lactated Ringers] 1,000 ml Med 04/30/24 18:37 Discontinued IV 999 mls/hr Sodium Chloride 0.9% 1000 ml [Ns] 1,000 ml Med 04/30/24 22:19 Discontinued IV 500 mls/hr hydrALAZINE INJ [Apresoline Inj] Med 05/01/24 00:01 Discontinued 20 mg IV X1 ONE Vital Signs Vital signs: Vital Signs Temperature 97.6 F 04/30/24 18:30 Pulse Rate 108 H 04/30/24 18:30 Respiratory Rate 24 H 04/30/24 18:30 Blood Pressure 165/87 H 04/30/24 18:30 Pulse Oximetry (%) 98 04/30/24 18:30 [facility] Patient data External records reviewed:: [facility] previous records Clinical information provided by:: patient Social determinants that could affect healthcare access:: none Patient has the following chronic illnesses:: Diabetes hypertension How is presenting disease/condition affected by chronic disease/condition?: e xacerbated by Evaluation data The following diagnostics were reviewed and interpreted by me:: lab results, radiology exam(s) and EKG tracing(s) Lab and/or radiology exams considered but not ordered:: CBC shows 21,000 white count no anemia or thrombocytopenia. VBG shows a pH of 7.53 pCO2 23 pO2 35 base deficit of 2 Chemistry shows sodium 134 potassium 3.8 chloride of 95 CO2 18.8 gap of 20. BUN and creatinine are unremarkable glucose of 262 Lactic of 1.9 Total bili of 4.4 tried AST of 136 ALT 178 alk phos of 254 Beta hydroxy of 5.4 Pro-Gage of 3.10 urine is positive for plus for glucose ketones and blood. Urine is positive for opiates. Just give MRCP shows acute cholecystitis with gallbladder sludge no choledocholithiasis identified. No Interpretation Summary: Patient's case discussed with Dr. Ku who wants the patient admitted to the hospitalist he will consult Medications Medications considered but not ordered:: None Medication administrations:: Medication Administration History Acetaminophen (Acetaminophen 325 Mg Tablet) 650 mg PO Q6H PRN PRN Reason: Fever >101.5 Stop: 05/31/24 14:05 Acetaminophen (Acetaminophen 325 Mg Tablet) 650 mg PO Q6H PRN PRN Reason: PAIN SCALE 1-3 (mild Stop: 05/31/24 14:05 Last Admin: 05/01/24 16:37 Dose: 650 mg Documented By: JARON Hydrocodone Bitart/Acetaminophen (Hydrocodone/Apap 10/325 Tab) 1 tab PO Q6HR PRN PRN Reason: Pain- 4-7 Stop: 05/06/24 20:57 Last Admin: 05/02/24 05:46 Dose: 1 tab Documented By: Admin: 05/01/24 21:17 Dose: 1 tab Documented By: WIL Dextrose (Dextrose 50%-Water Inj 50 Ml Syringe) 25 ml IV Q15MIN PRN PRN Reason: BG 50-70 responsive npo pt Stop: 05/31/24 14:11 Dextrose (Dextrose 50%-Water Inj 50 Ml Syringe) 50 ml IV Q15MIN PRN PRN Reason: BG <50 OR BG <70 & pt unresponsive Stop: 05/31/24 14:11 Docusate Sodium (Docusate Sod 100 Mg Capsule) 100 mg PO QDAY [facility]; Protocol Stop: 06/01/24 08:59 Glucagon (Glucagon Inj 1 Mg Vial) 1 mg IM Q15MIN PRN PRN Reason: BG <70, and no IV access Piperacillin/Tazobactam/Dextrose (Zosyn) 3.375 gm in 50 mls @ 12.5 mls/hr IV Q8HR [facility] Stop: 05/08/24 21:59 Last Admin: 05/02/24 05:41 Dose: 12.5 mls/hr Documented By: Infusion: 05/02/24 01:17 Dose: Infused Documented By: Admin: 05/01/24 21:17 Dose: 12.5 mls/hr Documented By: WIL Lactated Ringer's (Lactated Ringers) 1,000 mls @ 150 mls/hr IV .Q6H40M [facility] Stop: 05/31/24 14:35 Last Admin: 05/02/24 05:41 Dose: 150 mls/hr Documented By: Infusion: 05/02/24 04:23 Dose: Infused Documented By: Admin: 05/01/24 21:42 Dose: 150 mls/hr Documented By: Infusion: 05/01/24 21:28 Dose: Infused Documented By: Admin: 05/01/24 14:47 Dose: 150 mls/hr Documented By: FABIAN Potassium Chloride (Kcl Ivpb) 10 meq in 100 mls @ 100 mls/hr IV Q1H [facility] Stop: 05/02/24 08:59 Last Admin: 05/02/24 05:42 Dose: 100 mls/hr Documented By: WIL Insulin Human Lispro (Insulin Lispro (Admelog) 1 Unit/0.01 Ml Unit) 0 unit SC AC [facility]; Protocol Stop: 05/31/24 16:59 Last Admin: 05/01/24 16:51 Dose: 3 unit Documented By: JARON Co-signed By: DEANNA Ondansetron HCl (Ondansetron Inj 2 Mg/Ml Inj 2 Ml) 4 mg IV Q6H PRN; Protocol PRN Reason: NAUSEA OR VOMITING Stop: 05/31/24 14:05 Pantoprazole Sodium (Pantoprazole Inj 40 Mg Vial) 40 mg IVP QDAY [facility] Stop: 05/31/24 14:14 Last Admin: 05/01/24 14:47 Dose: 40 mg Documented By: FABIAN Sennosides (Senna Tablet) 1 tab PO QDAY [facility]; Protocol Stop: 06/01/24 08:59 Discontinued Medications Acetaminophen (Acetaminophen 325 Mg Tablet) 650 mg PO X1 ONE Stop: 05/01/24 09:21 Last Admin: 05/01/24 10:20 Dose: 650 mg Documented By: LORI Diphenhydramine HCl (Diphenhydramine Inj 50 Mg/Ml Vial) 12.5 mg IVP X1 ONE Stop: 04/30/24 22:16 Last Admin: 04/30/24 23:37 Dose: 12.5 mg Documented By: MIGUEL ANGEL Hydralazine HCl (Hydralazine Inj 20 Mg/Ml Vial) 20 mg IV X1 ONE Stop: 05/01/24 00:02 Last Admin: 05/01/24 00:59 Dose: 20 mg Documented By: MIGUEL ANGEL Lactated Ringer's (Lactated Ringers) 1,000 mls @ 999 mls/hr IV .Q1H1M ONE Stop: 04/30/24 19:37 Last Infusion: 04/30/24 22:42 Dose: Infused Documented By: Admin: 04/30/24 20:19 Dose: 999 mls/hr Documented By: JAYDEN Piperacillin/Tazobactam/Dextrose (Zosyn) 3.375 gm in 50 mls @ 100 mls/hr IV X1 ONE Stop: 04/30/24 21:59 Last Infusion: 04/30/24 22:41 Dose: Infused Documented By: Admin: 04/30/24 21:43 Dose: 100 mls/hr Documented By: JAYDEN Sodium Chloride (Ns) 1,000 mls @ 500 mls/hr IV .Q2H ONE Stop: 05/01/24 00:18 Last Admin: 04/30/24 23:38 Dose: Not Given Documented By: MIGUEL ANGEL Non-Admin Reason: Cancelled by Provider Lactated Ringer's (Lactated Ringers) 1,000 mls @ 500 mls/hr IV .Q2H ONE Stop: 05/01/24 01:24 Last Infusion: 05/01/24 02:33 Dose: Infused Documented By: MIGUEL ANGEL Admin: 04/30/24 23:48 Dose: 500 mls/hr Documented By: MIGUEL ANGEL Lactated Ringer's (Lactated Ringers) 1,000 mls @ 250 mls/hr IV .Q4H ONE Stop: 05/01/24 07:56 Last Infusion: 05/01/24 09:04 Dose: Infused Documented By: Admin: 05/01/24 04:49 Dose: 250 mls/hr Documented By: TRAVIS Piperacillin/Tazobactam/Dextrose (Zosyn) 3.375 gm in 50 mls @ 100 mls/hr IV X1 ONE Stop: 05/01/24 14:10 Last Infusion: 05/01/24 14:39 Dose: Infused Documented By: Admin: 05/01/24 14:02 Dose: 100 mls/hr Documented By: RODRIGUE Lactated Ringer's (Lactated Ringers) 1,000 mls @ 75 mls/hr IV .[id number] JOB Stop: 05/31/24 14:14 Insulin Human Regular (Insulin Hum Regular 1 Unit/0.01 Ml (Per Unit)) 10 unit IV X1 ONE Stop: 04/30/24 23:40 Last Admin: 05/01/24 00:11 Dose: 10 unit Documented By: MIGUEL ANGEL Co-signed By: JADYEN Comments: Lidocaine (Lidocaine 5% 1 Patch) 1 patch TOP X1 ONE Stop: 05/01/24 23:54 Metoclopramide HCl (Metoclopramide Inj 5 Mg/Ml Vial 2 Ml) 10 mg IVP X1 ONE; Protocol Stop: 04/30/24 22:16 Last Admin: 04/30/24 23:36 Dose: 10 mg Documented By: MIGUEL ANGEL Metoclopramide HCl (Metoclopramide Inj 5 Mg/Ml Vial 2 Ml) 10 mg IVP X1 ONE; Protocol Stop: 05/01/24 06:58 Last Admin: 05/01/24 07:38 Dose: 10 mg Documented By: DB Morphine Sulfate (Morphine Sulf Inj 10 Mg/Ml Vial) 5 mg IVP X1 ONE Stop: 04/30/24 21:11 Last Admin: 04/30/24 21:43 Dose: 5 mg Documented By: CB Ondansetron HCl (Ondansetron Inj 2 Mg/Ml Inj 2 Ml) 4 mg IV X1 ONE; Protocol Stop: 04/30/24 18:38 Last Admin: 04/30/24 20:18 Dose: 4 mg Documented By: JAYEDN None Consultations Consultation(s) initiated? (list below): Yes Consultation #1 (Physician, Specialty, Details): Kings Time: 13:38 Diagnosis Differential Diagnosis ED Complaint MDM: DKA gastroparesis cholelithiasis choledocholithiasis cholecystitis Most likely diagnosis given after review of the tests above:: Cholecystitis Admission Indicated Admission indicated?: indicated Explain why admission is indicated or not indicated:: Further medical management Admission Request Was there a request for admission?: No Disposition Plan Disposition Plan: Admit Medical Decision Making Differential Diagnosis Differential Diagnosis: DKA gastroparesis cholelithiasis choledocholithiasis cholecystitis Lab Data 05/01/24 07:54 05/01/24 23:07 Labs: Lab Results 04/30/24 04/30/24 04/30/24 Range/Units 18:37 19:04 19:47 WBC 18.9 H (3.8-10.6) Thou/mm3 RBC 5.43 (4.50-5.90) Miln/mm3 Hgb 15.9 (13.5-16.0) g/dL Hct 45.8 (41.0-53.0) % MCV 84 (80-100) fL MCH 29.3 (25.0-35.0) pg MCHC 34.7 (31.0-37.0) g/dl RDW Std Deviation 40.5 (35.1-43.9) fL Plt Count 273 (140-440) Thou/mm3 Neut % (Auto) 88 H (37-80) % Lymph % (Auto) 5 L (10-50) % Ida % (Auto) 7 (0-12) % Eos % (Auto) 0 (0-10) % Baso % (Auto) 0 (0-2.5) % Neut # (Auto) 16.6 H (1.8-7.7) Thou/mm3 Lymph # (Auto) 0.9 L (1.0-4.8) Thou/mm3 Ida # (Auto) 1.2 H (0.0-0.8) Thou/mm3 Eos # (Auto) 0.0 (0.0-0.5) Thou/mm3 Baso # (Auto) 0.0 (0.0-0.2) Thou/mm3 Immature Gran # (Auto) 0.15 H (0.00-0.00) Thou/mm3 Absolute Nucleated RBC 0.00 (0.00-0.00) Thou/mm3 Immature Gran % 1 H (0-0) % Nucleated RBC % 0 (0) /100 WBC VBG pH 7.53 (7.33-7.66) VBG pCO2 23 L (36-56) mmHg VBG pO2 35 (15-58) mmHg VBG O2 Sat (Antonio) 79 L (96-97) % VBG Base Excess -2 (-3-3) Sodium 133 L (136-145) mMol/L Potassium 4.0 (3.4-5.1) mMol/L Chloride 92 L (98-107) mMol/L Carbon Dioxide 17.4 L (20.0-31.0) mMol/L Anion Gap 24 H (7-16) BUN 20 (9-23) mg/dL Creatinine 1.2 (0.6-1.3) mg/dL Estim Creat Clear Calc Not Performed. eGFR > 60 (60 - ) See Note BUN/Creatinine Ratio 17 (12-20) Ratio Glucose 359 H (74-106) mg/dL Calculated Osmolality 282 (275-295) Lactic Acid 4.9 H* (0.4-2.0) mMol/L Calcium 9.8 (8.3-10.6) mg/dL Corrected Calcium 9.8 (8.5-10.1) mg/dL Phosphorus 2.1 L (2.4-5.1) mg/dL Magnesium 1.9 (1.6-2.6) mg/dL Total Bilirubin 6.5 H (0.3-1.2) mg/dL AST 207 H (0-34) U/L ALT 231 H (10-49) U/L Alkaline Phosphatase 268 H (46-116) U/L Total Protein 7.9 (5.7-8.2) gm/dL Albumin 4.5 (3.4-4.8) gm/dL Globulin 3.4 (2.3-3.5) gm/dL Albumin/Globulin Ratio 1.3 (1.2-2.2) Lipase 28 (12-53) U/L Beta-Hydroxybutyrate/Acetoacetate 5.2 H (<0.6) mmol/L Procalcitonin 3.10 H (0.0-0.49) ng/ml Ur Collection Type Clean Catch Urine Color Yellow (Lt Yel-Yel) Urine Clarity Clear (Clear/Hazy) Urine pH 6.0 (5.0-7.0) Ur Specific [place] 1.037 H (1.001-1.035) Urine Protein 1+ A (Neg - Trace) Urine Glucose (UA) 4+ A (Negative) Urine Ketones 3+ A (Negative) Urine Blood 2+ A (Negative) Urine Nitrite Negative (Negative) Urine Bilirubin 1+ A (Negative) Urine Urobilinogen (Auto) Negative (0.0-1.0) mg/dL Ur Leukocyte Esterase Negative (Negative) Urine RBC 6 H (0-3) /hpf Urine WBC 1 (0-5) /hpf Ur Squamous Epith Cells 0 (0-5) /hpf Urine Bacteria Rare (None) Ur Culture Indicated? Not Indicated Urine Opiates Screen Positive A (Negative) Urine Fentanyl Screen Negative (Negative) Ur Barbiturates Screen Negative (Negative) U Amphetamin/Meth Scrn Negative (Negative) U Benzodiazepines Scrn Negative (Negative) U Cocaine Metab Screen Negative (Negative) U Marijuana (THC) Screen Positive A (Negative) Ethyl Alcohol < 3.0 (0-10.0) mg/dL 04/30/24 05/01/24 05/01/24 Range/Units 22:24 03:05 07:54 WBC 21.3 H (3.8-10.6) Thou/mm3 RBC 5.15 (4.50-5.90) Miln/mm3 Hgb 15.3 (13.5-16.0) g/dL Hct 42.9 (41.0-53.0) % MCV 83 (80-100) fL MCH 29.7 (25.0-35.0) pg MCHC 35.7 (31.0-37.0) g/dl RDW Std Deviation 41.2 (35.1-43.9) fL Plt Count 283 (140-440) Thou/mm3 Neut % (Auto) 87 H (37-80) % Lymph % (Auto) 5 L (10-50) % Ida % (Auto) 7 (0-12) % Eos % (Auto) 0 (0-10) % Baso % (Auto) 0 (0-2.5) % Neut # (Auto) 18.5 H (1.8-7.7) Thou/mm3 Lymph # (Auto) 1.0 (1.0-4.8) Thou/mm3 Ida # (Auto) 1.6 H (0.0-0.8) Thou/mm3 Eos # (Auto) 0.0 (0.0-0.5) Thou/mm3 Baso # (Auto) 0.0 (0.0-0.2) Thou/mm3 Immature Gran # (Auto) 0.13 H (0.00-0.00) Thou/mm3 Absolute Nucleated RBC 0.00 (0.00-0.00) Thou/mm3 Immature Gran % 1 H (0-0) % Nucleated RBC % 0 (0) /100 WBC VBG pH (7.33-7.66) VBG pCO2 (36-56) mmHg VBG pO2 (15-58) mmHg VBG O2 Sat (Antonio) (96-97) % VBG Base Excess (-3-3) Sodium 135 L 134 L (136-145) mMol/L Potassium 3.8 3.8 (3.4-5.1) mMol/L Chloride 96 L 95 L (98-107) mMol/L Carbon Dioxide 20.9 18.8 L (20.0-31.0) mMol/L Anion Gap 18 H 20 H (7-16) BUN 22 21 (9-23) mg/dL Creatinine 1.1 1.0 (0.6-1.3) mg/dL Estim Creat Clear Calc Not Performed. Not Performed. eGFR > 60 > 60 (60 - ) See Note BUN/Creatinine Ratio 20 21 H (12-20) Ratio Glucose 281 H D 262 H (74-106) mg/dL Calculated Osmolality 283 280 (275-295) Lactic Acid 3.0 H 1.9 (0.4-2.0) mMol/L Calcium 9.3 9.3 (8.3-10.6) mg/dL Corrected Calcium 9.3 9.3 (8.5-10.1) mg/dL Phosphorus 2.8 (2.4-5.1) mg/dL Magnesium (1.6-2.6) mg/dL Total Bilirubin 4.4 H D (0.3-1.2) mg/dL AST 136 H (0-34) U/L ALT 178 H (10-49) U/L Alkaline Phosphatase 254 H (46-116) U/L Total Protein 7.3 (5.7-8.2) gm/dL Albumin 4.2 4.2 (3.4-4.8) gm/dL Globulin 3.1 (2.3-3.5) gm/dL Albumin/Globulin Ratio 1.4 (1.2-2.2) Lipase (12-53) U/L Beta-Hydroxybutyrate/Acetoacetate (<0.6) mmol/L Procalcitonin (0.0-0.49) ng/ml Ur Collection Type Urine Color (Lt Yel-Yel) Urine Clarity (Clear/Hazy) Urine pH (5.0-7.0) Ur Specific [place] (1.001-1.035) Urine Protein (Neg - Trace) Urine Glucose (UA) (Negative) Urine Ketones (Negative) Urine Blood (Negative) Urine Nitrite (Negative) Urine Bilirubin (Negative) Urine Urobilinogen (Auto) (0.0-1.0) mg/dL Ur Leukocyte Esterase (Negative) Urine RBC (0-3) /hpf Urine WBC (0-5) /hpf Ur Squamous Epith Cells (0-5) /hpf Urine Bacteria (None) Ur Culture Indicated? Urine Opiates Screen (Negative) Urine Fentanyl Screen (Negative) Ur Barbiturates Screen (Negative) U Amphetamin/Meth Scrn (Negative) U Benzodiazepines Scrn (Negative) U Cocaine Metab Screen (Negative) U Marijuana (THC) Screen (Negative) Ethyl Alcohol (0-10.0) mg/dL 05/01/24 Range/Units 09:05 WBC (3.8-10.6) Thou/mm3 RBC (4.50-5.90) Miln/mm3 Hgb (13.5-16.0) g/dL Hct (41.0-53.0) % MCV (80-100) fL MCH (25.0-35.0) pg MCHC (31.0-37.0) g/dl RDW Std Deviation (35.1-43.9) fL Plt Count (140-440) Thou/mm3 Neut % (Auto) (37-80) % Lymph % (Auto) (10-50) % Ida % (Auto) (0-12) % Eos % (Auto) (0-10) % Baso % (Auto) (0-2.5) % Neut # (Auto) (1.8-7.7) Thou/mm3 Lymph # (Auto) (1.0-4.8) Thou/mm3 Ida # (Auto) (0.0-0.8) Thou/mm3 Eos # (Auto) (0.0-0.5) Thou/mm3 Baso # (Auto) (0.0-0.2) Thou/mm3 Immature Gran # (Auto) (0.00-0.00) Thou/mm3 Absolute Nucleated RBC (0.00-0.00) Thou/mm3 Immature Gran % (0-0) % Nucleated RBC % (0) /100 WBC VBG pH (7.33-7.66) VBG pCO2 (36-56) mmHg VBG pO2 (15-58) mmHg VBG O2 Sat (Antonio) (96-97) % VBG Base Excess (-3-3) Sodium (136-145) mMol/L Potassium (3.4-5.1) mMol/L Chloride (98-107) mMol/L Carbon Dioxide (20.0-31.0) mMol/L Anion Gap (7-16) BUN (9-23) mg/dL Creatinine (0.6-1.3) mg/dL Estim Creat Clear Calc eGFR (60 - ) See Note BUN/Creatinine Ratio (12-20) Ratio Glucose (74-106) mg/dL Calculated Osmolality (275-295) Lactic Acid (0.4-2.0) mMol/L Calcium (8.3-10.6) mg/dL Corrected Calcium (8.5-10.1) mg/dL Phosphorus (2.4-5.1) mg/dL Magnesium (1.6-2.6) mg/dL Total Bilirubin (0.3-1.2) mg/dL AST (0-34) U/L ALT (10-49) U/L Alkaline Phosphatase (46-116) U/L Total Protein (5.7-8.2) gm/dL Albumin (3.4-4.8) gm/dL Globulin (2.3-3.5) gm/dL Albumin/Globulin Ratio (1.2-2.2) Lipase (12-53) U/L Beta-Hydroxybutyrate/Acetoacetate 5.4 H (<0.6) mmol/L Procalcitonin (0.0-0.49) ng/ml Ur Collection Type Urine Color (Lt Yel-Yel) Urine Clarity (Clear/Hazy) Urine pH (5.0-7.0) Ur Specific [place] (1.001-1.035) Urine Protein (Neg - Trace) Urine Glucose (UA) (Negative) Urine Ketones (Negative) Urine Blood (Negative) Urine Nitrite (Negative) Urine Bilirubin (Negative) Urine Urobilinogen (Auto) (0.0-1.0) mg/dL Ur Leukocyte Esterase (Negative) Urine RBC (0-3) /hpf Urine WBC (0-5) /hpf Ur Squamous Epith Cells (0-5) /hpf Urine Bacteria (None) Ur Culture Indicated? Urine Opiates Screen (Negative) Urine Fentanyl Screen (Negative) Ur Barbiturates Screen (Negative) U Amphetamin/Meth Scrn (Negative) U Benzodiazepines Scrn (Negative) U Cocaine Metab Screen (Negative) U Marijuana (THC) Screen (Negative) Ethyl Alcohol (0-10.0) mg/dL Discharge Plan Plan Patient Disposition: Admit Acute Care w/in Hospital Problem List Clinical Impression: Acute cholecystitis
[2024-05-01] MEDS: PIPER/TAZO 3.375 GM PREMIX 3.375 GM/50 ML BAG IV ×2 (14:02→21:17)
--- NOTE | 2024-05-01 14:20 | ESHP_ITS ---
<Statement entered by Farida Gary MD - 05/02/24 07:48> I discussed with and supervised the internal medicine nurse physician who took care of this patient. I personally saw and examined the patient and discussed the assessment and plan with the entire medicine team, including my attending Dr. Avalos , I agree with most of the assessment and plan as documented below Farida Gary M.D. PGY-2 Documentation for date of: 05/01/24 HPI History of Present Illness Chief complaint: Nausea/ vomitng History of present illness: 63-year-old male with past medical history of hypertension, diabetes mellitus insulin-dependent who presented to the ED due to nausea, vomiting, and diarrhea. Patient started having nausea and vomiting about 3 days ago nonbloody nonbilious mostly food particles. Patient also having abdominal pain, mostly in the epigastric region. In the ED patient was evaluated for DKA on ABG patient does not show acidosis at this time. On examination patient with right upper quadrant tenderness positive Griggs sign and imaging showing acute cholecystitis. ED consulted general surgeon Dr. Ku for possible laparoscopic cholecystectomy. Denies fever, chills, shortness of breath, chest pain, peripheral edema, recent travel, sick contacts. Admitted for acute cholecystitis. ED course: Vitals on arrival BP 162/93, HR 93, O2 98%, Labs significant for Leukocytosis, sodium 134, chloride 95, bicarb 18.8, anion gap 20, BUN 21, creatinine 1.0, glucose 262, total bili 4.4, AST 136, ALT 178, alk phos 254, beta hydroxybutyrate 5.4, abdominal pelvic CT showed distended gallbladder, moderate bilateral renal parenchymal scar formation with perinephric stranding gallbladder ultrasound showed cholelithiasis, MRCP showed acute cholecystitis with gallbladder sludge. PMHx: as above SxHx: left shoulder surgery Social Hx: denies alcohol use (quit 40 years ago), denies tobacco use, + THC FHx: unknown Review of Systems Review of Systems Narrative Review of Systems: Narrative ROS GENERAL: Denies fevers/chills or diaphoresis. HEENT: Denies headache or visual/hearing changes. Denies nasal discharge. NEURO: Denies unusual weakness or difficulty speaking. CARDIO: Denies chest pain or palpitations. PULM: Denies SOB, coughing, or wheezing. GI: + abdominal pain,+ N/V/C/D/reflux/gas, denies bright red blood per rectum or melena. Reports having BMs. URO: Denies burning/itching/pain/urinary changes. MSK/EXT/SKIN: Denies joint/skeletal/muscle pain, issues/changes in upper or lower extremities, itchiness, or superficial pain. PSYCH: Cooperative, pleasant mood & affect. The rest of the review of systems is otherwise negative. Exam Vital Signs Temp Pulse Resp BP Pulse Ox O2 Del Method 97.7 F 93 18 162/93 H 95 Room Air 05/01/24 14:00 05/01/24 14:00 05/01/24 14:00 05/01/24 14:00 05/01/24 14:00 05/01/24 14:00 Narrative Exam Physical Exam GENERAL: NAD, AAOx3 HEENT: Moist mucosa. Eyes open, symmetrical, & clear CARDIO: Heart RRR, no obvious murmurs PULM: No noted coughing/dyspnea CTA B/L, no R/W/R GI: Abdomen soft, nondistended, pain on palpation RUQ. BSx4 SKIN/MSK/EXT: No wounds/rashes/edema/amputations, no pain on palpation. Pedal pulses present B/L NEURO: AAOx3, no focal neuro deficits, able to move all 4 extremities Results: Labs 05/01/24 07:54 05/01/24 07:54 Labs: Short CBC 04/30/24 05/01/24 Range/Units 19:04 07:54 WBC 18.9 H 21.3 H (3.8-10.6) Thou/mm3 Hgb 15.9 15.3 (13.5-16.0) g/dL Hct 45.8 42.9 (41.0-53.0) % Plt Count 273 283 (140-440) Thou/mm3 BMP 04/30/24 05/01/24 05/01/24 19:04 03:05 07:54 Sodium 133 L 135 L 134 L Potassium 4.0 3.8 3.8 Chloride 92 L 96 L 95 L Carbon Dioxide 17.4 L 20.9 18.8 L BUN 20 22 21 Creatinine 1.2 1.1 1.0 Glucose 359 H 281 H D 262 H Calcium 9.8 9.3 9.3 Liver Function 03/12/25 03/13/25 03/13/25 Range/Units 19:04 03:05 07:54 Total Bilirubin 6.5 H 4.4 H D (0.3-1.2) mg/dL AST 207 H 136 H (0-34) U/L ALT 231 H 178 H (10-49) U/L Alkaline Phosphatase 268 H 254 H (46-116) U/L Albumin 4.5 4.2 4.2 (3.4-4.8) gm/dL Urine 04/30/24 Range/Units 19:47 Urine Color Yellow (Lt Yel-Yel) Urine Clarity Clear (Clear/Hazy) Urine pH 6.0 (5.0-7.0) Ur Specific [place] 1.037 H (1.001-1.035) Urine Protein 1+ A (Neg - Trace) Urine Glucose (UA) 4+ A (Negative) ABG Interpretation ABG results: 04/30/24 19:04 VBG pH 7.53 VBG pCO2 23 L VBG pO2 35 VBG Base Excess -2 Quality Measures Quality Measures none Medications Home Medications and Allergies Home Medications ?Medication ?Instructions ?Recorded ?Confirmed ?Type hydrocodone 5 mg-acetaminophen 325 1 tab PO QID PRN Pa in 12/03/17 12/03/17 History mg tablet ([place]) metformin 1,000 mg tablet 1,000 mg PO BID 12/03/17 History Allergies Allergy/AdvReac Type Severity Reaction Status Date / Time walnut Allergy Unknown SOB Verified 04/30/24 18:20 Visit Medications Acetaminophen (Acetaminophen 325 Mg Tablet) 650 mg PO Q6H PRN PRN Reason: Fever >101.5 Stop: 05/31/24 14:05 Acetaminophen (Acetaminophen 325 Mg Tablet) 650 mg PO Q6H PRN PRN Reason: PAIN SCALE 1-3 (mild Stop: 05/31/24 14:05 Dextrose (Dextrose 50%-Water Inj 50 Ml Syringe) 25 ml IV Q15MIN PRN PRN Reason: BG 50-70 responsive npo pt Stop: 05/31/24 14:11 Dextrose (Dextrose 50%-Water Inj 50 Ml Syringe) 50 ml IV Q15MIN PRN PRN Reason: BG <50 OR BG <70 & pt unresponsive Stop: 05/31/24 14:11 Docusate Sodium (Docusate Sod 100 Mg Capsule) 100 mg PO QDAY [facility]; Protocol Stop: 06/01/24 08:59 Glucagon (Glucagon Inj 1 Mg Vial) 1 mg IM Q15MIN PRN PRN Reason: BG <70, and no IV access Lactated Ringer's (Lactated Ringers) 1,000 mls @ 75 mls/hr IV .[id number] [facility] Stop: 05/31/24 14:14 Insulin Human Lispro (Insulin Lispro (Admelog) 1 Unit/0.01 Ml Unit) 0 unit SC AC [facility]; Protocol Stop: 05/31/24 16:59 Ondansetron HCl (Ondansetron Inj 2 Mg/Ml Inj 2 Ml) 4 mg IV Q6H PRN; Protocol PRN Reason: NAUSEA OR VOMITING Stop: 05/31/24 14:05 Pantoprazole Sodium (Pantoprazole Inj 40 Mg Vial) 40 mg IVP QDAY [facility] Stop: 05/31/24 14:14 Sennosides (Senna Tablet) 1 tab PO QDAY [facility]; Protocol Stop: 06/01/24 08:59 Discontinued Medications Acetaminophen (Acetaminophen 325 Mg Tablet) 650 mg PO X1 ONE Stop: 05/01/24 09:21 Last Admin: 05/01/24 10:20 Dose: 650 mg Diphenhydramine HCl (Diphenhydramine Inj 50 Mg/Ml Vial) 12.5 mg IVP X1 ONE Stop: 04/30/24 22:16 Last Admin: 04/30/24 23:37 Dose: 12.5 mg Hydralazine HCl (Hydralazine Inj 20 Mg/Ml Vial) 20 mg IV X1 ONE Stop: 05/01/24 00:02 Last Admin: 05/01/24 00:59 Dose: 20 mg Lactated Ringer's (Lactated Ringers) 1,000 mls @ 999 mls/hr IV .Q1H1M ONE Stop: 04/30/24 19:37 Last Infusion: 04/30/24 22:42 Dose: Infused Piperacillin/Tazobactam/Dextrose (Zosyn) 3.375 gm in 50 mls @ 100 mls/hr IV X1 ONE Stop: 04/30/24 21:59 Last Infusion: 04/30/24 22:41 Dose: Infused Sodium Chloride (Ns) 1,000 mls @ 500 mls/hr IV .Q2H ONE Stop: 05/01/24 00:18 Last Admin: 04/30/24 23:38 Dose: Not Given Lactated Ringer's (Lactated Ringers) 1,000 mls @ 500 mls/hr IV .Q2H ONE Stop: 05/01/24 01:24 Last Infusion: 05/01/24 02:33 Dose: Infused Lactated Ringer's (Lactated Ringers) 1,000 mls @ 250 mls/hr IV .Q4H ONE Stop: 05/01/24 07:56 Last Infusion: 05/01/24 09:04 Dose: Infused Piperacillin/Tazobactam/Dextrose (Zosyn) 3.375 gm in 50 mls @ 100 mls/hr IV X1 ONE Stop: 05/01/24 14:10 Last Admin: 05/01/24 14:02 Dose: 100 mls/hr Insulin Human Regular (Insulin Hum Regular 1 Unit/0.01 Ml (Per Unit)) 10 unit IV X1 ONE Stop: 04/30/24 23:40 Last Admin: 05/01/24 00:11 Dose: 10 unit Metoclopramide HCl (Metoclopramide Inj 5 Mg/Ml Vial 2 Ml) 10 mg IVP X1 ONE; Protocol Stop: 04/30/24 22:16 Last Admin: 04/30/24 23:36 Dose: 10 mg Metoclopramide HCl (Metoclopramide Inj 5 Mg/Ml Vial 2 Ml) 10 mg IVP X1 ONE; Protocol Stop: 05/01/24 06:58 Last Admin: 05/01/24 07:38 Dose: 10 mg Morphine Sulfate (Morphine Sulf Inj 10 Mg/Ml Vial) 5 mg IVP X1 ONE Stop: 04/30/24 21:11 Last Admin: 04/30/24 21:43 Dose: 5 mg Ondansetron HCl (Ondansetron Inj 2 Mg/Ml Inj 2 Ml) 4 mg IV X1 ONE; Protocol Stop: 04/30/24 18:38 Last Admin: 04/30/24 20:18 Dose: 4 mg Assessment & Plan Plan 63-year-old male with past medical history of hypertension, diabetes mellitus insulin-dependent who presented to the ED due to nausea, vomiting, and diarrhea. Patient started having nausea and vomiting about 3 days ago nonbloody nonbilious mostly food particles. Patient also having abdominal pain, mostly in the epigastric region. In the ED patient was evaluated for DKA on ABG patient does not show acidosis at this time. On examination patient with right upper quadrant tenderness positive Griggs sign and imaging showing acute cholecystitis. ED consulted general surgeon Dr. Ku for possible laparoscopic cholecystectomy. Denies fever, chills, shortness of breath, chest pain, peripheral edema, recent travel, sick contacts. Admitted for acute cholecystitis. #Acute cholecystitis #leukocytosis Patient with nausea, vomiting, diarrhea On examination patient with right upper quadrant tenderness and positive Griggs sign CT abdomen pelvis was negative for acute cholecystitis Gallbladder ultrasound however showed cholelithiasis MRCP showed acute cholecystitis ? N.p.o. for possible surgical intervention ? General surgeon Dr. Ku consulted, appreciate recommendations ? Started on IV Zosyn ? Maintenance IV fluids LR 100 cc/h ? Pain control #Ketonemia There was concern for DKA as there was increased beta hydroxybutyrate, and increased anion gap of 20, UA showing ketones, however patient with pH of 7.47 ? Monitor renal panel, magnesium, phosphate for increasing anion gap ? Continue with lactated Ringer's #Elevated transaminases Likely secondary to acute cholecystitis ? Monitor at this time #Hypertension ? Will resume amlodipine 10 mg daily as taken at home #Insulin-dependent diabetes mellitus Patient apparently takes 80 units of insulin at home There was concern for DKA as there was increased beta hydroxybutyrate, and increased anion gap of 20 however patient with pH of 7.47 ? Monitor renal panel, magnesium, phosphate for increasing anion gap ? SSI ? Hypoglycemia protocol in place Case discussed with my senior Dr. Gary PGY-[address] Bailey Garza MD PGY-1 Disposition: Med tele Fluids: LR Feeding: NPO for procedure Thrombo prophylaxis: SCDs Gastric Ulcer prophylaxis: Pantoprazole 40 mg IV daily CODE STATUS: DNR Attending Provider Attestation/Addendum I attest that I was physically present for the evaluation, physical examination, lab and imaging review of the patient with the residents. I discussed the case with the residents and agree with the findings and plans of care as documented above. Patient is a 63 years old male with past medical history of hypertension, diabetes mellitus who presented to the ED with complaint of nausea, vomiting and diarrhea. Patient has been having nonbloody nonbilious vomiting for last 3 days. It is associated with epigastric pain. Patient has been unable to use his insulin since he started having vomiting episodes. In the ED, he was found to have bicarbonate of 18.8, anion gap 20, glucose 262, beta hydroxybutyrate 5.4. There was a concern for DKA but blood gas did not show any acidosis. Patient received IV insulin in the ED. He also underwent abdomen/pelvis CT which showed distended gallbladder. Patient also underwent gallbladder ultrasound which showed cholelithiasis followed by MRCP which showed acute cholecystitis with gallbladder sludge. We will admit the patient for management of acute cholecystitis, started on IV fluid, antibiotics. We will obtain general surgery consult. Started on aggressive hydration along with insulin regimen for hyperglycemia with ketonemia. We will monitor his renal panel and electrolytes closely. Stanley Avalos MD
--- NOTE | 2024-05-01 14:43 | PD.SURCONS ---
HPI Consult details Consult date: 05/01/24 Reason for consultation narrative: Right upper quadrant abdominal pain with nausea and vomiting History of present illness: 63-year-old male with history of diabetes and hypertension presented to the emergency department with worsening abdominal pain. His symptoms started about 3 days ago with epigastric and right upper quadrant abdominal pain radiating to his back. He has had multiple episodes of nausea and vomiting and has not been able to eat any food. He denies having similar symptoms in the past. He denies discoloration of urine or stool, however he states since yesterday he has noted yellowing of his eyes. He denies fever or chills. Review of Systems Constitutional Constitutional: Denies chills, Denies fever(s) and Denies headache(s) ENT Ears, Nose, Mouth, and Throat: Denies disequilibrium and Denies headache(s) Cardiovascular Cardiovascular: Denies chest pain Respiratory Respiratory: Denies cough Gastrointestinal Gastrointestinal: Reports abdominal pain, Reports nausea and Reports vomiting Genitourinary Genitourinary: Denies difficulty urinating Musculoskeletal Musculoskeletal: Reports back pain Neurologic Neurologic: Reports system reviewed and no additional complaints, except as documented, Denies confusion, Denies disequilibrium and Denies headache(s) Psychiatric Psychiatric: Denies confusion Hematologic/Lymphatic Hematologic/Lymphatic: Denies easy bleeding and Denies easy bruising Past Medical History Surgical History OTHER SURGICAL HX: Shoulder surgery Social History SMOKING STATUS: Never smoker SUBSTANCE USE: marijuana ALCOHOL: Former Meds Home Medications and Allergies Home Medications ?Medication ?Instructions ?Recorded ?Confirmed ?Type hydrocodone 5 mg-acetaminophen 325 1 tab PO QID PRN Pain 12/03/17 05/01/24 History mg tablet ([place]) metformin 1,000 mg tablet 1,000 mg PO BID 12/03/17 05/01/24 History gabapentin 600 mg tablet 600 mg PO HS 05/01/24 05/01/24 History liraglutide 0.6 mg/0.1 mL (18 mg/3 1.5 mg subcut QDAY 05/01/24 05/01/24 History mL) subcutaneous pen injector (Victoza 3-Skyler) Allergies Allergy/AdvReac Type Severity Reaction Status Date / Time walnut Allergy Unknown SOB Verified 04/30/24 18:20 Exam Vital Signs Temp Pulse Resp BP Pulse Ox O2 Del Method 97.7 F 93 18 162/93 H 95 Room Air 05/01/24 14:00 05/01/24 14:00 05/01/24 14:00 05/01/24 14:00 05/01/24 14:00 05/01/24 14:00 Constitutional Constitutional: no acute distress Routine HEENT Exam Eye: Present conjunctival icterus (Bilateral) Routine Abdominal Exam Abdominal: Present soft, normoactive bowel sounds and tenderness (Right upper quadrant tenderness to palpation with guarding, positive Griggs sign); Absent distended Results Results: Laboratory Laboratory results: results reviewed Results: Imaging Imaging narrative: Abdominal ultrasound, CT scan of abdomen and pelvis and MRCP images reviewed, radiologist interpretation noted Assessment & Plan Problem List (1) Calculus of gallbladder with acute cholecystitis without obstruction: Status: Acute Plan Keep n.p.o. with IV fluids and IV antibiotics. Will plan for laparoscopic possible open cholecystectomy today if OR time is available otherwise tomorrow. Risks include but not limited to infection, bleeding, injury to bowel, liver, stomach, bile duct, retained stone, bile leak, abdominal sepsis and or abdominal abscess, need for further procedure and or operation discussed with the patient. Benefits and alternatives explained to him, all his questions answered, he agreed and consented to proceed with the operation.
[2024-05-01] MEDS: PANTOPRAZOLE INJ 40 MG VIAL IVP (14:47)
[2024-05-01] MEDS: RINGERS LACTATED 1000 ML 1,000 ML 150 ML IV ×2 (14:47→21:42)
--- NOTE | 2024-05-01 14:56 | PC.NURSE ---
DR. LAZO AT BEDSIDE SPEAKING WITH PATIENT AND FAMILY REGARDING SURGICAL PROCEDURE. PATIENT AND FAMILY VERBALIZE UNDERSTANDING AND HAVE NO QUESTIONS AT THIS TIME.
--- NOTE | 2024-05-01 16:10 | PC.NURSE ---
Received Hand off report from ER Nurse Diana at 15:30. Patient arrived on the floor at 16:08.
[2024-05-01] MEDS: INSULIN LISPRO (AdmeLOG) 1 UNIT/0.01 ML UNIT SC (16:51)
--- NOTE | 2024-05-01 18:35 | PC.NURSE ---
Informed MD of Patient's elevated blood pressure. Patient has been nauseous and dry heaving, likely elevating the blood pressure. will continue to assess.
[2024-05-01 20:09] LABS: Albumin, Serum 3.8 gm/dL (3.4-4.8); Anion Gap 18 (7-16); BUN/Creatinine Ratio 19 Ratio (12-20); Blood Urea Nitrogen 19 mg/dL (9-23); Calcium 8.7 mg/dL (8.3-10.6); Calcium (Corrected) 8.9 mg/dL (8.5-10.1); Carbon Dioxide 17.9 mMol/L (20.0-31.0); Chloride 97 mMol/L (98-107); Estimated Creatinine Clearance 85.4 mL/min (>60); Glucose 211 mg/dL (74-106); Magnesium 1.9 mg/dL (1.6-2.6); Osmolality,Calculated 274 (275-295); Phosphorous 2.3 mg/dL (2.4-5.1); Potassium 3.7 mMol/L (3.4-5.1); Sodium 133 mMol/L (136-145); eGFR > 60 See Note
--- NOTE | 2024-05-01 21:03 | PC.NURSE ---
Notified Dr. Burt that patient had a chief complaint of pain. Notified that the only pain medication he has a tylenol and it was recently given and is not due until 2229. Per Dr. Burt, he will oreder narco for the patient.
[2024-05-01] MEDS: HYDROcodone/APAP 10/325 TAB PO (21:17)
[2024-05-01 21:59] LABS: Base Excess -2 (-3-3); HCO3 19 mEq/L (20-26); Inspired Oxygen, FIO2 21 %; O2 Saturation 98 % (91-98); PCO2 22 mmHg (32.0-48.0); PO2 116 mmHg (83-108); Puncture Site Right Radial; pH, Arterial 7.55 (7.35-7.45)
[2024-05-01 22:00] LABS: Allen Test Performed/OK
[2024-05-01 23:25] LABS: Lactate (Lactic Acid) 1.3 mMol/L (0.4-2.0)
[2024-05-01 23:49] LABS: Albumin, Serum 3.4 gm/dL (3.4-4.8); Anion Gap 16 (7-16); BUN/Creatinine Ratio 24 Ratio (12-20); Blood Urea Nitrogen 22 mg/dL (9-23); Calcium 8.1 mg/dL (8.3-10.6); Calcium (Corrected) 8.6 mg/dL (8.5-10.1); Carbon Dioxide 18.9 mMol/L (20.0-31.0); Chloride 97 mMol/L (98-107); Creatinine (Component) 0.9 mg/dL (0.6-1.3); Estimated Creatinine Clearance 94.9 mL/min (>60); Glucose 196 mg/dL (74-106); Osmolality,Calculated 272 (275-295); Phosphorous 2.2 mg/dL (2.4-5.1); Potassium 3.6 mMol/L (3.4-5.1); Sodium 132 mMol/L (136-145); eGFR > 60 See Note
[2024-05-02] VITALS (14 sets, daily range): BP systolic 118–202; BP diastolic 61–111; PULSE 75–102; RESP 13–98; TEMP 36.1–36.9; O2SAT 94–99; BMI 30.7
[2024-05-02] MEDS: PIPER/TAZO 3.375 GM PREMIX 3.375 GM/50 ML BAG IV ×2 (05:41→22:32)
[2024-05-02] MEDS: RINGERS LACTATED 1000 ML 1,000 ML 150 ML IV (05:41)
[2024-05-02] MEDS: POTASSIUM CHL 10 mEq IVPB 10 MEQ/100 ML BAG 100 MEQ IV ×4 (05:42→10:32)
[2024-05-02] MEDS: HYDROcodone/APAP 10/325 TAB PO ×2 (05:46→20:17)
[2024-05-02 06:05] LABS: Basophils % (Auto) 0 % (0-2.5); Eosinophils % (Auto) 0 % (0-10); Hematocrit 39.3 % (41.0-53.0); Immature Granulocytes % (Auto) 1 % (0-0); Immature Granulocytes Auto 0.09 Thou/mm3 (0.00-0.00); Lymphocytes # (Auto) 1.4 Thou/mm3 (1.0-4.8); Lymphocytes % (Auto) 9 % (10-50); Mean Corpuscular HGB Conc 35.6 g/dl (31.0-37.0); Mean Corpuscular Hemoglobin 29.4 pg (25.0-35.0); Mean Corpuscular Volume 82 fL (80-100); Monocytes # (Auto) 1.2 Thou/mm3 (0.0-0.8); Monocytes % (Auto) 8 % (0-12); Neutrophils # (Auto) 13.1 Thou/mm3 (1.8-7.7); Neutrophils % (Auto) 83 % (37-80); Nucleated Red Blood Cell % 0 /100 WBC (0); Platelet Count 252 Thou/mm3 (140-440); RDW Standard Deviation 40.4 fL (35.1-43.9); Red Blood Count 4.77 Miln/mm3 (4.50-5.90); White Blood Count 15.8 Thou/mm3 (3.8-10.6)
[2024-05-02 06:12] LABS: Glucose Estimated Average 266 mg/dL (80-131); Hemoglobin A1C 10.9 % Hgb (4.8-6.0)
[2024-05-02 06:42] LABS: Alanine Aminotransferase 91 U/L (10-49); Albumin, Serum 3.6 gm/dL (3.4-4.8); Albumin/Globulin Ratio 1.2 (1.2-2.2); Alkaline Phosphatase 233 U/L (46-116); Anion Gap 17 (7-16); Aspartate Amino Transferase 104 U/L (0-34); BUN/Creatinine Ratio 19 Ratio (12-20); Bilirubin,Total 2.5 mg/dL (0.3-1.2); Blood Urea Nitrogen 17 mg/dL (9-23); Calcium 8.5 mg/dL (8.3-10.6); Calcium (Corrected) 8.8 mg/dL (8.5-10.1); Chloride 98 mMol/L (98-107); Creatinine (Component) 0.9 mg/dL (0.6-1.3); Estimated Creatinine Clearance 94.9 mL/min (>60); Globulin 2.9 gm/dL (2.3-3.5); Glucose 179 mg/dL (74-106); Magnesium 1.9 mg/dL (1.6-2.6); Osmolality,Calculated 271 (275-295); Phosphorous 1.7 mg/dL (2.4-5.1); Potassium 3.6 mMol/L (3.4-5.1); Sodium 133 mMol/L (136-145); Total Protein 6.5 gm/dL (5.7-8.2); eGFR > 60 See Note
[2024-05-02] MEDS: INSULIN LISPRO (AdmeLOG) 1 UNIT/0.01 ML UNIT SC ×2 (07:22→16:23)
[2024-05-02] MEDS: LIDOCAINE 5% 1 PATCH TOP (08:01)
[2024-05-02] MEDS: PANTOPRAZOLE INJ 40 MG VIAL IVP (08:01)
[2024-05-02 08:38] LABS: INR 1.1 (0.9-1.3); Prothrombin Time 12.1 Seconds (9.0-12.2)
[2024-05-02] MEDS: SOD PHOS ADDITIVE 30 MMOL in SODIUM CHLORIDE 0.9% 500 ML 500 ML 62.5 MMOL IV (09:31)
[2024-05-02] MEDS: ONDANSETRON INJ 2 MG/ML INJ 2 ML 4 MG IV (11:57)
--- NOTE | 2024-05-02 14:50 | PD.SUROPNT ---
Date of Procedure 05/02/24 Pre Op Diagnosis Acute cholecystitis Post Op Diagnosis Acute cholecystitis Procedure Laparoscopic cholecystectomy Findings Very distended and tense gallbladder, gallbladder wall thickening with extensive pericholecystic inflammation. Anterior surface of the liver was smooth without nodules or any lesions Procedure Description Patient was brought into the operating room in supine position. After administration of general endotracheal anesthesia abdomen was prepped and draped in standard surgical manner. A Veress needle was inserted through the umbilicus and pneumoperitoneum was obtained up to 15 mmHg. The Veress needle was then removed, a 5 mm supraumbilical incision was made and the 5mm trocar was inserted. Laparoscopic camera was placed. Under direct visualization a laparoscopic camera a 10 mm trocar was placed in subxiphoid and two 5 mm trocars placed in right upper quadrant. The anterior surface of the liver was smooth without nodules or any lesions. The gallbladder was identified and was noted to be very distended and tense, thick-walled with extensive pericholecystic inflammation. The gallbladder was decompressed with an aspirator. It was retracted cephalad and laterally. Dissection started near the infundibulum of gallbladder where cystic duct and gallbladder junction clearly identified. The cystic duct was circumferentially dissected off the peritoneum and surrounding inflammatory tissue. The critical view of safety was clearly demonstrated. Cystic duct was then divided between 2 endoclips proximally and one distally. The cystic artery was similarly dissected and divided. The gallbladder was then from the liver bed using electrocautery. The gallbladder was then placed inside an Endo Catch and removed from the abdomen utilizing subxiphoid trocar site. The area was copiously and thoroughly washed and irrigated, all the fluid was suctioned and the suction fluid returned clear. Hemostasis achieved using electrocautery. Endoclips noted be in place and intact without any bleeding or any leakage. Hemostasis was adequate and satisfactory. The subxiphoid trocar sites fascial defect was closed with 0 Vicryl using Endo Closure device. Instruments and trocars removed, pneumoperitoneum was evacuated and the incisions closed with 4-0 Monocryl in subcuticular fashion. Instrument needle and sponge counts were all reported to be correct X2. Patient tolerated the procedure well, was extubated, breathing spontaneously and without difficulty and was transferred to postanesthesia care in stable condition. Anesthesia GETA and local Pathology / specimen Other (Gallbladder) Estimated Blood Loss 50 Condition Stable Disposition PACU Surgeon Rose Ku MD Surgical Staff Operation Date: 05/02/24 14:30 Case Staff PRESSURE TESTER: Pako Gould ceo & board director: Clemencia Burr
--- NOTE | 2024-05-02 15:07 | ESPR_ITS ---
<Statement entered by Farida Gary MD - 05/02/24 17:50> I discussed with and supervised the mba internship physician who took care of this patient. I personally saw and examined the patient and discussed the assessment and plan with the entire medicine team, including my attending , I agree with most of the assessment and plan as documented below Farida Gary M.D. PGY-2 Documentation for date of: 05/02/24 Subjective Subjective Interval history: Patient seen today at the bedside fine awake, alert, oriented x 3. Patient is n.p.o. however received [place] overnight unknown reason. Vital signs stable at this time. Labs stable at this time. Patient is scheduled to go to the OR today for laparoscopic versus open cholecystectomy. Will reevaluate postop. Exam Vital Signs Temp Pulse Resp BP Pulse Ox O2 Del Method 97.2 F 86 16 156/86 H 94 L Room Air 05/02/24 12:00 05/02/24 12:00 05/02/24 12:00 05/02/24 12:00 05/02/24 12:00 05/02/24 12:00 Narrative Exam Physical Exam GENERAL: NAD, AAOx3 HEENT: Moist mucosa. Eyes open, symmetrical, & clear CARDIO: Heart RRR, no obvious murmurs PULM: No noted coughing/dyspnea CTA B/L, no R/W/R GI: Abdomen soft, nondistended, pain on palpation RUQ. BSx4 SKIN/MSK/EXT: No wounds/rashes/edema/amputations, no pain on palpation. Pedal pulses present B/L NEURO: AAOx3, no focal neuro deficits, able to move all 4 extremities Objective Labs 05/02/24 04:49 05/02/24 04:49 Labs: Laboratory Results - last 24 hr 05/01/24 05/01/24 05/01/24 15:30 15:30 18:32 WBC RBC Hgb Hct MCV MCH MCHC RDW Std Deviation Plt Count Neut % (Auto) Lymph % (Auto) Mcintosh % (Auto) Eos % (Auto) Baso % (Auto) Neut # (Auto) Lymph # (Auto) Mcintosh # (Auto) Eos # (Auto) Baso # (Auto) Immature Gran # (Auto) Absolute Nucleated RBC Immature Gran % Nucleated RBC % PT INR Puncture Site ABG pH ABG pCO2 ABG pO2 ABG HCO3 ABG O2 Saturation ABG Base Excess FiO2 Sodium Cancelled 133 L Potassium Cancelled 3.7 Chloride Cancelled 97 L Carbon Dioxide Cancelled 17.9 L Anion Gap Cancelled 18 H BUN Cancelled 19 Creatinine Cancelled 1.0 Estim Creat Clear Calc Cancelled 85.4 eGFR Cancelled > 60 BUN/Creatinine Ratio Cancelled 19 Glucose Cancelled [address] Glu mg/dL Hemoglobin A1c Calculated Osmolality Cancelled 274 L Lactic Acid Calcium Cancelled 8.7 Corrected Calcium Cancelled 8.9 Phosphorus Cancelled 2.3 L Magnesium Cancelled Cancelled 1.9 Total Bilirubin AST ALT Alkaline Phosphatase Total Protein Albumin Cancelled 3.8 Globulin Albumin/Globulin Ratio 05/01/24 05/01/24 05/02/24 21:47 23:07 04:49 WBC 15.8 H D RBC 4.77 Hgb 14.0 Hct 39.3 L MCV 82 MCH 29.4 MCHC 35.6 RDW Std Deviation 40.4 Plt Count 252 D Neut % (Auto) 83 H Lymph % (Auto) 9 L Mcintosh % (Auto) 8 Eos % (Auto) 0 Baso % (Auto) 0 Neut # (Auto) 13.1 H Lymph # (Auto) 1.4 Mcintosh # (Auto) 1.2 H Eos # (Auto) 0.0 Baso # (Auto) 0.0 Immature Gran # (Auto) 0.09 H Absolute Nucleated RBC 0.00 Immature Gran % 1 H Nucleated RBC % 0 PT 12.1 INR 1.1 Puncture Site Right Radial ABG pH 7.55 H ABG pCO2 22 L ABG pO2 116 H ABG HCO3 19 L ABG O2 Saturation 98 ABG Base Excess -2 FiO2 21 Sodium 132 L 133 L Potassium 3.6 3.6 Chloride 97 L 98 Carbon Dioxide 18.9 L 18.0 L Anion Gap 16 17 H BUN 22 17 Creatinine 0.9 0.9 Estim Creat Clear Calc 94.9 94.9 eGFR > 60 > 60 BUN/Creatinine Ratio 24 H 19 Glucose [address] Glu mg/dL 266 H Hemoglobin A1c 10.9 H Calculated Osmolality 272 L 271 L Lactic Acid 1.3 Calcium 8.1 L 8.5 Corrected Calcium 8.6 8.8 Phosphorus 2.2 L 1.7 L Magnesium 1.9 Total Bilirubin 2.5 H D AST 104 H ALT 91 H Alkaline Phosphatase 233 H D Total Protein 6.5 Albumin 3.4 3.6 Globulin 2.9 Albumin/Globulin Ratio 1.2 ABG Interpretation ABG results: 04/30/24 05/01/24 19:04 21:47 ABG pH 7.55 H ABG pCO2 22 L ABG pO2 116 H ABG HCO3 19 L ABG O2 Saturation 98 ABG Base Excess -2 VBG pH 7.53 VBG pCO2 23 L VBG pO2 35 VBG Base Excess -2 Quality Measures Quality Measures none Assessment & Plan Assessment Current Active Medications: Generic Name Dose Route Start Last Admin Trade Name Freq PRN Reason Stop Dose Admin Acetaminophen 650 mg 05/01/24 14:06 Acetaminophen 325 Mg Tablet PO 05/31/24 14:05 Q6H PRN Fever >101.5 Acetaminophen 650 mg 05/01/24 14:06 05/01/24 16:37 Acetaminophen 325 Mg Tablet PO 05/31/24 14:05 650 mg Q6H PRN Administration PAIN SCALE 1-3 (mild Hydrocodone Bitart/Acetaminophen 1 tab 05/01/24 20:58 05/02/24 05:46 Hydrocodone/Apap 10/325 Tab PO 05/06/24 20:57 1 tab Q6HR PRN Administration Pain- 4-7 Albuterol/Ipratropium 3 ml 05/02/24 14:14 Albuterol/Ipratropium (Duoneb) Rt Ruth 3 Ml Nebu INH 06/01/24 14:13 Q4HRRT PRN SHORTNESS OF BREATH Dextrose 25 ml 05/01/24 14:12 Dextrose 50%-Water Inj 50 Ml Syringe IV 05/31/24 14:11 Q15MIN PRN BG 50-70 responsive npo pt Dextrose 50 ml 05/01/24 14:12 Dextrose 50%-Water Inj 50 Ml Syringe IV 05/31/24 14:11 Q15MIN PRN BG <50 OR BG <70 & pt unresponsive Docusate Sodium 100 mg 05/02/24 09:00 05/02/24 08:02 Docusate Sod 100 Mg Capsule PO 06/01/24 08:59 Not Given QDAY JOB Protocol Fentanyl Citrate 50 mcg 05/02/24 14:14 Fentanyl Cit Inj 50 Mcg/Ml Amp 2ml IV 05/02/24 16:14 Q5M PRN PAIN SCALE 4-6 (Moderate Glucagon 1 mg 05/01/24 14:12 Glucagon Inj 1 Mg Vial IM Q15MIN PRN BG <70, and no IV access Hydralazine HCl 10 mg 05/02/24 14:14 Hydralazine Inj 20 Mg/Ml Vial IV 05/02/24 16:14 X1 ONE Hydromorphone HCl 0.5 mg 05/02/24 14:14 Hydromorphone Inj 2 Mg/Ml Vial IVP 05/02/24 16:15 Q10MIN PRN severe pain 7-10 Piperacillin/Tazobactam/Dextrose 3.375 gm in 50 mls @ 12.5 mls/hr 05/01/24 22:00 05/02/24 13:30 Zosyn IV 05/08/24 21:59 Not Given Q8HR JOB Lactated Ringer's 1,000 mls @ 150 mls/hr 05/01/24 14:36 05/02/24 05:41 Lactated Ringers IV 05/31/24 14:35 150 mls/hr .Q6H40M JOB Administration Sodium Phosphate 30 mmol/ 510 mls @ 62.5 mls/hr 05/02/24 08:47 05/02/24 09:31 Sodium Chloride IV 05/02/24 16:56 62.5 mls/hr X1 ONE Administration Insulin Glargine 20 unit 05/02/24 10:00 05/02/24 10:27 Insulin Glargine (Lantus) 5 Unit/0.05 Ml (Per 5 Units) SC 06/01/24 09:59 Not Given QDAY [facility] Insulin Human Lispro 0 unit 05/01/24 17:00 05/02/24 11:20 Insulin Lispro (Admelog) 1 Unit/0.01 Ml Unit SC 05/31/24 16:59 Not Given AC [facility] Protocol Labetalol HCl 5 mg 05/02/24 14:14 Labetalol Inj 5 Mg/Ml Vial 20 Ml IVP 05/02/24 16:15 Q10MIN PRN SBP >180 DBP>100 or HR >100 Metoprolol Tartrate 2.5 mg 05/02/24 14:14 Metoprolol Tartrate Inj 1 Mg/Ml Amp 5 Ml IVP 06/01/24 14:13 PRN PRN Heart Rate- High Ondansetron HCl 4 mg 05/01/24 14:06 05/02/24 11:57 Ondansetron Inj 2 Mg/Ml Inj 2 Ml IV 05/31/24 14:05 4 mg Q6H PRN Administration NAUSEA OR VOMITING Protocol Pantoprazole Sodium 40 mg 05/01/24 14:15 05/02/24 08:01 Pantoprazole Inj 40 Mg Vial IVP 05/31/24 14:14 40 mg QDAY JOB Administration Promethazine HCl 12.5 mg 05/02/24 14:14 Promethazine Inj 25 Mg/Ml Vial IV 05/02/24 16:15 Q30M PRN NAUSEA Sennosides 1 tab 05/02/24 09:00 05/02/24 08:02 Senna Tablet PO 06/01/24 08:59 Not Given QDAY JOB Protocol Plan 63-year-old male with past medical history of hypertension, diabetes mellitus insulin-dependent who presented to the ED due to nausea, vomiting, and diarrhea. Patient started having nausea and vomiting about 3 days ago nonbloody nonbilious mostly food particles. Patient also having abdominal pain, mostly in the epigastric region. In the ED patient was evaluated for DKA on ABG patient does not show acidosis at this time. On examination patient with right upper quadrant tenderness positive Griggs sign and imaging showing acute cholecystitis. ED consulted general surgeon Dr. Ku for possible laparoscopic cholecystectomy. Denies fever, chills, shortness of breath, chest pain, peripheral edema, recent travel, sick contacts. Admitted for acute cholecystitis. #Acute cholecystitis #leukocytosis Patient with nausea, vomiting, diarrhea On examination patient with right upper quadrant tenderness and positive Griggs sign CT abdomen pelvis was negative for acute cholecystitis Gallbladder ultrasound however showed cholelithiasis MRCP showed acute cholecystitis ? N.p.o. for possible surgical intervention ? General surgeon Dr. Ku consulted, appreciate recommendations ? on IV Zosyn ? Pain control #Ketonuria There was concern for DKA as there was increased beta hydroxybutyrate, and increased anion gap of 20, UA showing ketones, however patient with pH of 7.47 ? Continue with lactated Ringer's #Elevated transaminases Likely secondary to acute cholecystitis ? Monitor at this time #Hypertension ? Will resume amlodipine 10 mg daily as taken at home #Insulin-dependent diabetes mellitus Patient apparently takes 80 units of insulin at home There was concern for DKA as there was increased beta hydroxybutyrate, and increased anion gap of 20 however patient with pH of 7.47 ? SSI ? Hypoglycemia protocol in place Case discussed with my senior Dr. Gary PGY-[address] Bailey Garza MD PGY-1 Disposition: Med tele Fluids: none Feeding: Full liquid Thrombo prophylaxis: SCDs Gastric Ulcer prophylaxis: Pantoprazole 40 mg IV daily CODE STATUS: DNR Attending Provider Attestation/Addendum I attest that I was physically present for the evaluation, physical examination, lab and imaging review of the patient with the residents. I discussed the case with the residents and agree with the findings and plans of care as documented above. At bedside, patient states that his abdominal pain, nausea and vomiting has improved significantly.? Denies any new complaints except for hunger.? WBC count has been downtrending.? Noted to have hemoglobin A1c of 10.9, phosphorus 1.7, repleted accordingly and patient on insulin regimen.? Liver panel including bilirubin, AST ALT and ALP downtrending.? Patient is planned for cholecystectomy with general surgery today. Stanley Avalos MD
[2024-05-02] MEDS: HYDROmorphone INJ 2 MG/ML VIAL 0.5 MG IVP ×2 (15:10→15:20)
[2024-05-02] MEDS: fentaNYL CIT INJ 50 mCg/ML AMP 2ML IV (15:47)
--- NOTE | 2024-05-02 15:55 | SUR.PHASEI ---
pt awake and alert, breathing unlabored on room air. v/s stable. pt dressing to abd x4 cdi. report called to Sabine LEDESMA. pt will be transferred to room at this time.
--- NOTE | 2024-05-02 16:17 | PC.SS ---
Update: Patient is alert/oriented. Patient was able to verify demographics. Patient is independent with ADL's. Patient was admitted for cholecystis. Patient states he resides with his daughter, Denita. Denita, Patient does not use any DME. Patient drives himself to appointments. PCP: [facility]. Patient follows with a pain management clinic every 4 weeks. Patient follows with [facility]: Dr. Caicedo. Patient plans on discharging home. No further d/c needs.
[2024-05-03] VITALS: BP 155/95; PULSE 82; RESP 17; TEMP 36.6; O2SAT 97
[2024-05-03 04:00] VITALS: BP 134/70; PULSE 78; PULSE 80; RESP 18; TEMP 36.3; O2SAT 98
[2024-05-03 06:08] LABS: Basophils % (Auto) 0 % (0-2.5); Eosinophils % (Auto) 0 % (0-10); Hematocrit 36.3 % (41.0-53.0); Hemoglobin 12.9 g/dL (13.5-16.0); Immature Granulocytes % (Auto) 1 % (0-0); Immature Granulocytes Auto 0.06 Thou/mm3 (0.00-0.00); Lymphocytes # (Auto) 1.1 Thou/mm3 (1.0-4.8); Lymphocytes % (Auto) 9 % (10-50); Mean Corpuscular HGB Conc 35.5 g/dl (31.0-37.0); Mean Corpuscular Hemoglobin 29.8 pg (25.0-35.0); Mean Corpuscular Volume 84 fL (80-100); Monocytes # (Auto) 0.9 Thou/mm3 (0.0-0.8); Monocytes % (Auto) 7 % (0-12); Neutrophils # (Auto) 10.2 Thou/mm3 (1.8-7.7); Neutrophils % (Auto) 83 % (37-80); Nucleated Red Blood Cell % 0 /100 WBC (0); Platelet Count 211 Thou/mm3 (140-440); RDW Standard Deviation 41.4 fL (35.1-43.9); Red Blood Count 4.33 Miln/mm3 (4.50-5.90); White Blood Count 12.3 Thou/mm3 (3.8-10.6)
[2024-05-03] MEDS: PIPER/TAZO 3.375 GM PREMIX 3.375 GM/50 ML BAG IV ×2 (06:08→13:39)
[2024-05-03] MEDS: MORPHINE SULF INJ 10 MG/ML VIAL 3 MG IVP (06:08)
[2024-05-03 06:37] LABS: Alanine Aminotransferase 134 U/L (10-49); Albumin, Serum 3.3 gm/dL (3.4-4.8); Albumin/Globulin Ratio 1.3 (1.2-2.2); Alkaline Phosphatase 218 U/L (46-116); Anion Gap 13 (7-16); Aspartate Amino Transferase 165 U/L (0-34); BUN/Creatinine Ratio 20 Ratio (12-20); Bilirubin,Total 2.7 mg/dL (0.3-1.2); Blood Urea Nitrogen 16 mg/dL (9-23); Calcium (Corrected) 8.6 mg/dL (8.5-10.1); Carbon Dioxide 23.5 mMol/L (20.0-31.0); Chloride 97 mMol/L (98-107); Creatinine (Component) 0.8 mg/dL (0.6-1.3); Estimated Creatinine Clearance 106.8 mL/min (>60); Globulin 2.5 gm/dL (2.3-3.5); Glucose 185 mg/dL (74-106); Magnesium 1.9 mg/dL (1.6-2.6); Osmolality,Calculated 272 (275-295); Phosphorous 2.7 mg/dL (2.4-5.1); Potassium 3.5 mMol/L (3.4-5.1); Sodium 133 mMol/L (136-145); Total Protein 5.8 gm/dL (5.7-8.2); eGFR > 60 See Note
[2024-05-03] MEDS: INSULIN LISPRO (AdmeLOG) 1 UNIT/0.01 ML UNIT SC ×2 (07:25→11:47)
[2024-05-03 07:36] VITALS: PULSE 82; RESP 20; RESP 95; O2SAT 95
[2024-05-03 08:00] VITALS: BP 128/78; PULSE 82; RESP 16; TEMP 36.2; O2SAT 97
[2024-05-03] MEDS: PANTOPRAZOLE INJ 40 MG VIAL IVP (08:48)
[2024-05-03] MEDS: SENNA TABLET 1 TAB PO (08:49)
[2024-05-03] MEDS: DOCUSATE SOD 100 MG CAPSULE PO (08:49)
[2024-05-03] MEDS: INSULIN GLARGINE (Lantus) 5 UNIT/0.05 ML (PER 5 UNITS) 20 UNIT SC (08:49)
[2024-05-03] MEDS: LIDOCAINE 5% 1 PATCH TOP (08:50)
[2024-05-03 12:00] VITALS: BP 140/75; PULSE 80; RESP 17; TEMP 36.5; O2SAT 96
--- NOTE | 2024-05-03 12:52 | PD.RESPRO ---
Documentation for date of: 05/03/24 Exam Vital Signs Temp Pulse Resp BP Pulse Ox O2 Del Method O2 Flow Rate 97.7 F 80 17 140/75 H 96 Room Air 8 05/03/24 12:00 05/03/24 12:00 05/03/24 12:00 05/03/24 12:00 05/03/24 12:00 05/03/24 12:00 05/02/24 15:15 Objective Labs 05/03/24 05:21 05/03/24 05:21 Labs: Laboratory Results - last 24 hr 05/03/24 05:21 WBC 12.3 H RBC 4.33 L Hgb 12.9 L Hct 36.3 L MCV 84 MCH 29.8 MCHC 35.5 RDW Std Deviation 41.4 Plt Count 211 D Neut % (Auto) 83 H Lymph % (Auto) 9 L Gordon % (Auto) 7 Eos % (Auto) 0 Baso % (Auto) 0 Neut # (Auto) 10.2 H Lymph # (Auto) 1.1 Gordon # (Auto) 0.9 H Eos # (Auto) 0.0 Baso # (Auto) 0.0 Immature Gran # (Auto) 0.06 H Absolute Nucleated RBC 0.00 Immature Gran % 1 H Nucleated RBC % 0 Sodium 133 L Potassium 3.5 Chloride 97 L Carbon Dioxide 23.5 Anion Gap 13 BUN 16 Creatinine 0.8 Estim Creat Clear Calc 106.8 eGFR > 60 BUN/Creatinine Ratio 20 Glucose 185 H Calculated Osmolality 272 L Calcium 8.0 L Corrected Calcium 8.6 Phosphorus 2.7 Magnesium 1.9 Total Bilirubin 2.7 H AST 165 H ALT 134 H Alkaline Phosphatase 218 H Total Protein 5.8 Albumin 3.3 L Globulin 2.5 Albumin/Globulin Ratio 1.3 ABG Interpretation ABG results: 04/30/24 05/01/24 19:04 21:47 ABG pH 7.55 H ABG pCO2 22 L ABG pO2 116 H ABG HCO3 19 L ABG O2 Saturation 98 ABG Base Excess -2 VBG pH 7.53 VBG pCO2 23 L VBG pO2 35 VBG Base Excess -2 Quality Measures Quality Measures none Assessment & Plan Assessment Current Active Medications: Generic Name Dose Route Start Last Admin Trade Name Freq PRN Reason Stop Dose Admin Acetaminophen 650 mg 05/01/24 14:06 Acetaminophen 325 Mg Tablet PO 05/31/24 14:05 Q6H PRN Fever >101.5 Hydrocodone Bitart/Acetaminophen 1 tab 05/01/24 20:58 05/02/24 20:17 Hydrocodone/Apap 10/325 Tab PO 05/06/24 20:57 1 tab Q6HR PRN Administration Pain- 4-7 Albuterol/Ipratropium 3 ml 05/02/24 14:14 Albuterol/Ipratropium (Duoneb) Rt Ruth 3 Ml Nebu INH 06/01/24 14:13 Q4HRRT PRN SHORTNESS OF BREATH Dextrose 25 ml 05/01/24 14:12 Dextrose 50%-Water Inj 50 Ml Syringe IV 05/31/24 14:11 Q15MIN PRN BG 50-70 responsive npo pt Dextrose 50 ml 05/01/24 14:12 Dextrose 50%-Water Inj 50 Ml Syringe IV 05/31/24 14:11 Q15MIN PRN BG <50 OR BG <70 & pt unresponsive Docusate Sodium 100 mg 05/02/24 09:00 05/03/24 08:49 Docusate Sod 100 Mg Capsule PO 06/01/24 08:59 100 mg QDAY JOB Administration Protocol Glucagon 1 mg 05/01/24 14:12 Glucagon Inj 1 Mg Vial IM Q15MIN PRN BG <70, and no IV access Piperacillin/Tazobactam/Dextrose 3.375 gm in 50 mls @ 12.5 mls/hr 05/01/24 22:00 05/03/24 06:08 Zosyn IV 05/08/24 21:59 12.5 mls/hr Q8HR JOB Administration Insulin Glargine 20 unit 05/02/24 10:00 05/03/24 08:49 Insulin Glargine (Lantus) 5 Unit/0.05 Ml (Per 5 Units) SC 06/01/24 09:59 20 unit QDAY JOB Administration Insulin Human Lispro 0 unit 05/01/24 17:00 05/03/24 11:47 Insulin Lispro (Admelog) 1 Unit/0.01 Ml Unit SC 05/31/24 16:59 2 unit AC JOB Administration Protocol Morphine Sulfate 3 mg 05/03/24 09:54 Morphine Sulf Inj 10 Mg/Ml Vial IVP 05/07/24 15:56 Q2H PRN PAIN SCALE 8-10 (Severe Ondansetron HCl 4 mg 05/01/24 14:06 05/02/24 11:57 Ondansetron Inj 2 Mg/Ml Inj 2 Ml IV 05/31/24 14:05 4 mg Q6H PRN Administration NAUSEA OR VOMITING Protocol Pantoprazole Sodium 40 mg 05/01/24 14:15 05/03/24 08:48 Pantoprazole Inj 40 Mg Vial IVP 05/31/24 14:14 40 mg QDAY JOB Administration Sennosides 1 tab 05/02/24 09:00 05/03/24 08:49 Senna Tablet PO 06/01/24 08:59 1 tab QDAY JOB Administration Protocol
--- NOTE | 2024-05-03 15:12 | PC.SS ---
Rounding: POD #1 plan to increase diet
--- NOTE | 2024-05-03 15:47 | ESDS_ITS ---
Planned Discharge Date 05/03/24 DS: Providers Provider Date of admission: 05/01/24 14:06 Primary care physician: Physician No Primary/Family Admitting Provider: Stanley Avalos MD Attending Provider on Admission: Stanley Avalos MD Consults: 05/01/24 14:19 Consult to General Surgery Stat Comment: Consulting Provider: Rose Ku Attending Provider on DC: Farida Gary MD Discharging Provider: Farida Gary MD DS: Diagnosis Problem List Completed Was Problem List Reviewed/Reconciled?: Yes Hospital Course Hospital Course Hospital course: Patient is a 63-year-old male with past medical history of hypertension, diabetes mellitus insulin-dependent who presented to the ED due to n/v, epigastric pain, and diarrhea and admitted for acute cholecystitis on 05/01/24. Imaging via MRCP confirmed acute cholecystitis with gallbladder sludge but no choledocholithiasis. There was some concern DKA as there was increased beta hydroxybutyrate, increased anion gap of 20, UA showing ketones, however patient presented with a pH of 7.47. Throughout hospital stay, patient was on IV Abx and fluids. General surgery, Dr. Ku was consulted and planed for a laparoscopy cholecystectomy, which occurred on 05/02/24. Pt seen and examined at bedside. Pt denies any complaints. Pt is medically cleared to be discharged today with the following instructions: Please take your home medications as prescribed. Please take Ciprofloxacin twice daily, with the first dose tonight. Please take Distant as needed for pain. Please see your PCP and Dr. Ku, general surgery within 1-2 weeks. If you do not have a PCP, please make an appointment at the [facility] at [phone]. no pulling ,pushing heavy stuff greater than 10 lbs. Hospital discharge diagnoses treated during hospital stay: #Acute cholecystitis #Leukocytosis #Ketonuria #Elevated transaminases #Hypertension #Insulin-dependent diabetes mellitus Case discussed with my attending Dr. Bailey Gary MD PGY-2 Status at Discharge Cognitive/behavioral status at discharge: stable Time Spent with Patient Time attestation: Total time spent providing and/or coordinating discharge services: 35 Exam Vital Signs Temp Pulse Resp BP Pulse Ox O2 Del Method O2 Flow Rate 97.7 F 80 17 140/75 H 96 Room Air 8 05/03/24 12:00 05/03/24 12:00 05/03/24 12:00 05/03/24 12:05/03/24 12:05/03/24 12:00 05/02/24 15:15 Narrative Exam General Appearance: Pt in NAD laying comfortably in bed. Alert and oriented. Well-nourished and well-developed. Cooperative. HEENT: NC/AT, no scleral icterus, no conjunctival pallor, MMM Lungs: CTAB, no wheezes or crackles appreciated CVS: RRR, S1/S2 heard, no murmurs or rubs appreciated ABD: Soft, obese, non-tender, non-distended, BS + in all 4 quadrants EXT: no deformity/edema/lesions/cyanosis/clubbing, radial pulses 2+ BL, DP pulses 2 + BL SKIN: Skin exam normal without any rashes. Neuro: A&O x 3. No gross neurological deficits. Motor and sensory grossly intact in B/L UL and LL. Psych: Appropriate mood and affect Discharge Plan Plan Patient Disposition: HOME (Self Care) Care Plan Goals: Please take your home medications as prescribed. Please take Ciprofloxacin twice daily, with the first dose tonight. Please take Distant as needed for pain. Please see your PCP and Dr. Ku, general surgery within 1-2 weeks. If you do not have a PCP, please make an appointment at the [facility] at [phone]. no pulling ,pushing heavy stuff greater than 10 lbs. Prescriptions/Referrals Prescriptions/Med Rec: New ciprofloxacin HCl 500 mg tablet 500 mg PO BID Qty: 11 0RF hydrocodone-acetaminophen 5-325 mg tablet 1 tab PO Q8H MDD 3 PRN (Reason: pain) Qty: 12 0RF Continued metformin 1,000 mg Tablet 1,000 mg PO BID amlodipine 10 mg tablet 10 mg PO QDAY Qty: 30 0RF gabapentin 600 mg tablet 600 mg PO HS Patient Comments: TAKE ONE TABLET BY MOUTH TWICE DAILY and TAKE TWO TABLETS BY MOUTH AT BEDTIME FOR NERVE PAIN liraglutide [Victoza 3-Skyler] 0.6 mg/0.1 mL (18 mg/3 mL) pen injector 1.5 mg SUBCUT QDAY Patient Comments: INJECT 1.8 MG SUBCUTANEOUSLY EVERY DAY FOR DIABETES Discontinued hydrocodone-acetaminophen [Distant] 5-325 mg Tablet 1 tab PO QID PRN (Reason: Pain) sulfamethoxazole-trimethoprim [Bactrim DS] 800-160 mg tablet 1 tab PO BID Qty: 20 0RF bacitracin 500 unit/gram ointment 1 applicatio TOPICAL QID Qty: 30 0RF Referrals: No Primary/Family,Physician [Primary Care Provider] - Patient/Caregiver Discharge Instructions Discharge Activity: activity as tolerated and resume usual activities Education Materials: Preventing Surgical Site Infections Print Language: Japanese Stand Alone Forms: Renate Award Info., Patient Portal Info Letter Discharge Order Discharge Orders: Discharge (Routine); Ordered 05/03/24 Ordered By: Farida Gary Quality Discharge Quality Measures VTE prophylaxis MD Attestestation MD Attestation I attest that I was physically present for the evaluation, physical examination, lab and imaging review of the patient with the residents. I discussed the case with the residents and agree with the findings and plans of care as documented above. At bedside today, patient is states she is feeling better and wants to go home. States that his abdominal pain has been well-controlled. Denied any nausea or vomiting. Has been tolerating his diet well. Underweight laparoscopic cholecystectomy with general surgery yesterday. Discussed with general surgery, agreed on discharging patient home with oral antibiotics. Recommended to follow-up with PCP and general surgery in 1 to 2 weeks of discharge. Stanley Avalos MD
[2024-05-03 16:00] VITALS: BP 153/88; PULSE 86; RESP 17; TEMP 36.3; O2SAT 97
== END 2024-05-03 16:53 | disposition home or self-care (01) | DRG 263 ==
LOC: SERX 05-01 14:54 → SERHOLD 05-01 15:01 → S3SX 05-01 16:09
PROVIDERS: Internal Medicine; Physician Assistant; Registered Nurse General Practice; Student in an Organized Health Care Education/Training Program; Surgery; Admitting Provider Student in an Organized Health Care Education/Training Program; Emergency Provider Emergency Medicine; Visit Provider Student in an Organized Health Care Education/Training Program
PROC: 0FT44ZZ Resection of Gallbladder, Percutaneous Endoscopic Approach (ICD-10-PCS; CPT 47562; principal; 2024-05-02 14:15)
DX: K80.00 Calculus of gallbladder with acute cholecystitis without obstruction (principal); E11.65 Type 2 diabetes mellitus with hyperglycemia; K82.8 Other specified diseases of gallbladder; R74.01 Elevation of levels of liver transaminase levels; I10 Essential (primary) hypertension; Z66 Do not resuscitate; Z79.4 Long term (current) use of insulin; Z79.84 Long term (current) use of oral hypoglycemic drugs
CPT/HCPCS: 36415; 36600; 74177; 76705; 80053; 80069; 80307; 80320; 81001; 82010; 82803; 83036; 83605; 83690; 83735; 84100; 84145; 85025; 85610; 87040; 87811; 96361; 96365; 96367; 96375; 96376; 99285; A4217; A4649; J0131; J0360; J0694; J1100; J1171; J1200; J1815; J1885; J2270; J2405; J2470; J2543; J2704; J2765; J3010; J3480; J3490; J7040; J7120; Q9967; S8037; 74181; A9270; G0480; J1805